=== PATIENT | female | born 1945 | race Caucasian/White ===

== ENCOUNTER 2018-09-19 12:52 | Outpatient (CLI) | payer MEDICARE ==
--- NOTE | 2018-09-19 15:39 | MRI ---
MRI BRAIN WITH AND WITHOUT CONTRAST: HISTORY: Dizziness. Balance issues. COMPARISON: None. TECHNIQUE: An MRI brain is performed with and without intravenous Gadolinium administration. Multisequential, m ultiplanar imaging is performed. FINDINGS: No hemorrhage on the axial gradient echo sequence. The calvarium has a normal T1 marrow signal intensity. The midline brain parenchymal structures are unremarkable. No parenchymal mass, mass effect, or midline shift. Brain volume is age appropriate. Cortical dobbs white matter differentiation is preserved. The ventricles and sulci are patent and symmetric. Minimal T2 and FLAIR white matter hyperintensities due to chronic small vessel ischemic change. Minimal disease of the paranasal sinuses. Adequate mastoid air cell aeration. Central arterial flow voids are maintained. Absent restricted diffusion. No pathologic enhancement of the brain parenchyma. IMPRESSION: 1. Absent restricted diffusion. 2. No acute infarct. 3. No abnormal enhancement in both visualized internal auditory canals/inner ears. Evaluation limit ed, as internal auditory canal protocol had not been performed. POS: [facility]
[2018-09-19] MEDS ORDERED: Gadobenate Dimeglumine 529 MG/1 ML (20ML VIAL) ONE (17:07)
== END 2018-09-19 12:53 | disposition home or self-care (01) ==
LOC: BICMRI 12:52
PROVIDERS: ATTEND Psychiatry & Neurology Neurology
DX: R42 Dizziness and giddiness (principal)
CPT/HCPCS: 70553; 82565; A9577

== ENCOUNTER 2020-05-26 23:52 | Inpatient (IN) | payer MEDICARE, OTHER ==
[2020-05-27] MEDS ORDERED: Acetaminophen 500 MG TAB ONE (00:23)
[2020-05-27 00:55] LABS: Lactic Acid 1.9 mmol/L (0.5-2.2)
[2020-05-27 01:03] LABS: Troponin I 0.041 ng/mL (< 0.028)
[2020-05-27] MEDS ORDERED: Ondansetron PF 4 MG/2 ML Vial IVP PRN (01:30)
[2020-05-27] MEDS ORDERED: HYDROcodone/Acetaminophen 5/325 mg Tablet PO PRN (01:30)
[2020-05-27] MEDS ORDERED: Calcium Carbonate 500 MG ChewTAB PO PRN (01:30)
--- NOTE | 2020-05-27 01:41 | PDOC.HHP ---
Hospitalist HPI - History of Present Illness fever chills History of Present Illness: Case of an 74y/o female with pmhx of htn, DM, hypercholesterolemia, and gerd who comes to hospital due to worsening covid symptoms patient refers she was on her usual state of health until about a week ago when she started with fever chills myalgias and diarrhea. patient was diagnosed with covid on 05/20 and sent home. patient returned today to [facility] due to worsening symptoms and increasing dyspnea. patient was evaluated and found with elevated LA at 2.4 and decreased 02 saturation in the 80s while walking for which she was transferred to this institution for further workup and management. Hospitalist ROS - Review of Systems All other systems reviewed; all pertinent +/- noted in HPI/Subj Hospitalist History - Family History Family History: reports: no pertinent history - Social History Alcohol: reports: Rare Drugs: reports: none - Exam General Appearance: NAD, awake alert, ill appearing Eye: PERRL, anicteric sclera ENT: normocephalic atraumatic, no oropharyngeal lesions Neck: supple, symmetric, no JVD, no thyromegaly Heart: RRR, no murmur, no gallops, no rubs Respiratory: CTAB, no wheezes, no rales Gastrointestinal: soft, non-tender, non-distended Extremities: no cyanosis, no clubbing, no edema Neurological: cranial nerve grossly intact, normal sensation to touch, no weakness Musculoskeletal: normal tone, normal strength, no muscle wasting Psychiatric: normal affect, normal behavior, A&O x 3 Hospitalist Results - Labs Lab results: Lactic Acid 1.9 mmol/L (0.5-2.2) 05/27/20 00:27 Troponin I 0.041 ng/mL (< 0.028) H 05/27/20 00:27 Hospitalist H&P A/P - Problem (1) Pneumonia due to COVID-19 virus Code(s): U07.1 - COVID-19; J12.89 - OTHER VIRAL PNEUMONIA Status: Acute (2) Hypercholesteremia Code(s): E78.00 - PURE HYPERCHOLESTEROLEMIA, UNSPECIFIED Status: Acute (3) DM2 (diabetes mellitus, type 2) Status: Chronic Qualifiers: Diabetes mellitus nursing home insulin use: with terminal press operator use Diabetes mellitus complication status: with unspecified complications (4) HTN (hypertension) Code(s): I10 - ESSENTIAL (PRIMARY) HYPERTENSION Status: Chronic Qualifiers: Hypertension type: essential hypertension Qualified Code(s): I10 - Essential (primary) hypertension - Plan Plan: 74y/o female with the stated pmhx who present with covid 19 pneumonia and hypoxia while on exertion covid 19 - tested positive 05/20 - levaquin prophylactically - f/u inflammation markers - f/u blood cultures - decadron 6mg ivd - ID consulted - supplementation - dvt prophylaxis htn - continue home meds DM - ss + acc - lantus 10u
[2020-05-27] MEDS: Sodium Chloride 0.9% 1,000 ML IV SCH ×2 (02:30→17:37)
[2020-05-27] MEDS ORDERED: Dextrose 50% Abboject 50 ML SYRINGE SLOW IVP PRN (03:04)
[2020-05-27] MEDS ORDERED: Dextrose 5% in Water 1,000 ML IV PRN (03:04)
[2020-05-27 04:35] LABS: ALT (SGPT) 19 U/L (8-55); AST (SGOT) 40 U/L (5-34); Albumin 3.1 g/dL (3.4-4.8); Alkaline Phosphatase 77 U/L (40-110); Anion Gap 13 mmol/L (10-20); BUN (Urea Nitrogen) 9 mg/dL (9.8-20.1); Bilirubin, Total 0.3 mg/dL (0.2-1.2); Calc. Creatinine Clearance 67 mL/min (70-130); Calcium 7.4 mg/dL (7.8-10.44); Carbon Dioxide 18 mmol/L (23-31); Chloride 105 mmol/L (98-107); Estimated GFR-MDRD 75; Globulin 2.5 g/dL (2.4-3.5); Glucose 304 mg/dL (83-110); Potassium 3.9 mmol/L (3.5-5.1); Protein, Total 5.6 g/dL (6.0-8.3); Sodium 132 mmol/L (136-145)
[2020-05-27] MEDS: Ondansetron ODT 4 MG TAB PO PRN ×2 (04:37→09:41)
[2020-05-27] MEDS: Acetaminophen 325 MG TAB PO PRN ×2 (04:37→09:16)
[2020-05-27 04:39] LABS: Troponin I 0.012 ng/mL (< 0.028)
[2020-05-27 05:06] LABS: Band 13 % (5-11); Hemoglobin 11.5 g/dL (12.0-16.0); Lymphocytes 28 % (21-51); MDiff Complete? YES; Mean Corpuscular HGB CONC 34.2 g/dL (32.0-36.0); Mean Corpuscular Hemoglobin 31.6 pg (27.0-31.0); Mean Corpuscular Volume 92.3 fL (78.0-98.0); Mean Platelet Volume 7.6 fL (7.4-10.4); Monocytes 7 % (0-10); Neutrophil 52 % (42-75); Platelet Count 171 thou/uL (130-400); RBC Distribution Width 10.6 % (11.5-14.5); Red Blood Cell (RBC) Count 3.66 mill/uL (4.20-5.40); White Blood Cell (WBC) Count 4.2 thou/uL (4.8-10.8)
[2020-05-27] MEDS: Insulin Regular 300 UNITS/3 ML VIAL SC PRN ×2 (06:33→18:17)
[2020-05-27 06:56] LABS: Troponin I Less than 0.010 ng/mL (< 0.028)
--- NOTE | 2020-05-27 08:42 | CT ---
PRELIMINARY REPORT/[facility]/EMERGENCY AFTER HOURS PROCEDURE: EXAM: CTA Chest with Intravenous Contrast CLINICAL HISTORY: Pt positive covid 10/5 desat on movement to 88 afebrile TECHNIQUE: Axial CTA images of the chest with intravenous contrast. Three-dimensional MIP/volume rendered reform ations were performed. CONTRAST: With; 70ML ISOVUE 370 COMPARISON: None provided. FINDINGS: PULMONARY ARTERIES There is no intraluminal filling defect suspicious for PE. AORTA No thoracic aortic aneurysm or dissection. LUNGS There are patchy groundglass opacity in bilateral lower lobes, findings highly suggestive of Covid 19 pneumonia. PLEURAL SPACES No pleural effusion. No pneumothorax. HEART AND MEDIASTINUM No cardiomegaly. No significant pericardial effusion. LYMPH NODES No lymphadenopathy. BONES No focal osseous abnormality or acute fracture. CHEST WALL AND UPPER ABDOMEN Images through the upper abdomen are unremarkable. The chest wall is unremarkable. MISCELLANEOUS: There is a small hiatal hernia. IMPRESSION: There are patchy groundglass opacity in bilateral lower lobes, findings highly suggestive of Covid 19 pneumonia. Clinical correlation recommended. No CT evidence of a pulmonary embolism. ELECTRONICALLY SIGNED BY: Sylvia Robles MD May 27, 2020 1:24:08 AM CDT This report is intended for review by the ordering physician only, in accordance of law. If you recei ve this report in error, please call [facility] at [phone]. FINAL REPORT CTA CHEST: Axial tomograms were obtained following the angio protocol with multiplanar reconstruction and 3D pos t processing. FINDINGS: No evidence of pulmonary embolus. There are bilateral peripheral ground-glass infiltrates more exten sive in the right lung. Findings are suggestive of COVID pneumonia as noted on the preliminary repor t. There is a small- to moderate-sized fixed diaphragmatic hernia. I am in agreement with the preliminary report. POS: OFF
[2020-05-27] MEDS ORDERED: Enoxaparin Sodium 40 MG/0.4 ML SYRINGE SC SCH (09:00)
[2020-05-27] MEDS: Guaifenesin DM 100-10/5 ML UDCUP PO PRN ×2 (09:16→23:45)
[2020-05-27] MEDS: Dexamethasone 6 MG in Sodium Chloride 0.9% 50 ML IVPB SCH (09:16)
--- NOTE | 2020-05-27 12:13 | PDOC.EVN ---
Event Note - Event Note Event Note: Patient says she feels generally terrible. Says she aches all over consistent with a viral infection. She reports that her sister and [id number] that lives with her now have it as well. She does feel slightly better than whenever she arrived. She has some mild scattered rales in the lungs. She does not appear to have tachypnea wearing oxygen. She is requiring oxygen but at very low levels at this point to maintain good saturations. Continue with the Decadron. ID consult pending. I believe she is fairly borderline as to whether she qualifies for Remdesivir.
[2020-05-27] MEDS ORDERED: ALPRAZolam 0.25 MG TAB PO PRN (12:46)
[2020-05-27] MEDS ORDERED: Ondansetron ODT 4 MG TAB PO PRN (12:46)
[2020-05-27] MEDS: HYDROcodone/Acetaminophen 5/325 mg Tablet PO PRN ×2 (13:37→21:38)
[2020-05-27] MEDS ORDERED: Iopamidol-370 76% 500 ML 1 ML ONE (13:40)
[2020-05-27] MEDS ORDERED: REMDESIVIR (EUA) 200 MG in Sodium Chloride 0.9% 250 ML 210 ML IV SCH (18:00)
--- NOTE | 2020-05-27 19:48 | CON ---
DATE OF CONSULTATION: 05/27/2020 REASON FOR CONSULTATION: COVID infection. HISTORY OF PRESENT ILLNESS: A 74-year-old, who has a history of type 2 diabetes, hypertension, and has been ill for the past 7 days. She was tested positive elsewhere, but sent home, but then she became more symptomatic and is admitted now. Coughing intermittently. No headaches. Mild dyspnea. No chest pain. No abdominal pain or diarrhea. No genitourinary symptoms. No joint symptoms. No skin disorder or neurological symptoms. PAST MEDICAL HISTORY: Type 2 diabetes, hypertension, bowel obstruction, osteopenia, hiatal hernia, GERD, hyperlipidemia. Empyema in 2017, she had a decortication by Dr. Siddiqi, this was on the left side. SOCIAL HISTORY: Never smoker. 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 FAMILY HISTORY: Some members of family have had COVID or SARS-CoV-2 infection. ALLERGIES: GABAPENTIN, STATINS. CURRENT MEDICATIONS: 1. Decadron. 2. Enoxaparin. 3. Prozac. 4. Guaifenesin. 5. Hydrocodone. 6. Insulin. 7. Lisinopril. 8. Ondansetron. 9. Pantoprazole. PHYSICAL EXAMINATION: VITAL SIGNS: T-max 99, BP 120/60, heart rate 73, saturating 97 on 1 L. GENERAL: Awake, alert, appears tired, but in no acute distress. SKIN: Normal. Peripheral IV access. Voiding in the diaper. No lymphadenopathy. HEENT: Ocular movements conjugate. Oral cavity normal. NECK: Supple. LUNGS: Scattered inspiratory crackles. No wheezing. HEART: S1 and S2, regular rate without murmurs. Normal apex impulse. ABDOMEN: Soft, not distended or tender. No ascites. No bladder distention. EXTREMITIES: Moves all extremities equally. NEUROLOGIC: Cognitive function appears to be intact. LABORATORY DATA: White cell count 4.2, hemoglobin 11, platelets 171, and 13% bands. Creatinine 0.76. AST 40. We do not have a ferritin submitted yet. She had an abdomen and pelvis CT from March of this year with distal small-bowel obstruction, probably from adhesions. She had a CT angio this morning, which showed patchy ground-glass opacity in bilateral lower lobes. ASSESSMENT: COVID infection with moderate pneumonia within 7 days, we will go ahead and start remdesivir. Continue Decadron, upgrade enoxaparin. Monitor daily labs. Job ID: [id number]
[2020-05-27] MEDS: Insulin Glargine 10 UNITS in Pre-Filled Syringe 1 EACH SC SCH (21:37)
[2020-05-27] MEDS: Enoxaparin Sodium 40 MG/0.4 ML SYRINGE SC SCH (21:37)
[2020-05-27] MEDS: HumaLOG 300 UNITS/3 ML VIAL SC PRN (22:03)
[2020-05-28 05:47] LABS: ALT (SGPT) 23 U/L (8-55); AST (SGOT) 46 U/L (5-34); Albumin 3.2 g/dL (3.4-4.8); Alkaline Phosphatase 92 U/L (40-110); Anion Gap 12 mmol/L (10-20); BUN (Urea Nitrogen) 10 mg/dL (9.8-20.1); Bilirubin, Direct 0.1 mg/dL (0.1-0.3); Bilirubin, Total 0.2 mg/dL (0.2-1.2); CRP (Inflammatory) 8.51 mg/dL (= or < 0.5); Calc. Creatinine Clearance 64 mL/min (70-130); Calcium 7.8 mg/dL (7.8-10.44); Carbon Dioxide 23 mmol/L (23-31); Chloride 107 mmol/L (98-107); Estimated GFR-MDRD 71; Glucose 345 mg/dL (83-110); Protein, Total 5.9 g/dL (6.0-8.3); Sodium 138 mmol/L (136-145)
[2020-05-28] MEDS: Insulin Regular 300 UNITS/3 ML VIAL SC PRN (05:52)
[2020-05-28] MEDS: Sodium Chloride 0.9% 1,000 ML IV SCH ×2 (05:52→20:48)
[2020-05-28] MEDS: Guaifenesin DM 100-10/5 ML UDCUP PO PRN ×3 (05:56→20:48)
[2020-05-28] MEDS: HYDROcodone/Acetaminophen 5/325 mg Tablet PO PRN ×3 (05:57→22:51)
[2020-05-28] MEDS: FLUoxetine HCl 20 MG CAP PO SCH (08:09)
[2020-05-28] MEDS: Lisinopril 5 MG TAB PO SCH (08:10)
[2020-05-28] MEDS: Saccharomyces boulardii 250 MG CAP PO SCH (08:11)
[2020-05-28] MEDS: Enoxaparin Sodium 40 MG/0.4 ML SYRINGE SC SCH ×2 (08:12→20:48)
[2020-05-28] MEDS: Insulin Glargine 20 UNITS in Pre-Filled Syringe 1 EACH SC SCH (10:11)
[2020-05-28] MEDS: Dexamethasone 6 MG in Sodium Chloride 0.9% 50 ML IVPB SCH (10:12)
[2020-05-28] MEDS: HumaLOG 300 UNITS/3 ML VIAL SC PRN ×3 (12:55→20:55)
--- NOTE | 2020-05-28 15:30 | PDOC.HOSPP ---
- Subjective Encounter Date: 05/28/20 Subjective: Feeling a little better today. Says she is feeling just a bit lazy. - Objective Vital Signs & Weight: Vital Signs (12 hours) Temp Pulse Resp BP Pulse Ox 05/28/20 11:44 98.9 F 66 20 129/62 95 05/28/20 08:43 98.7 F 65 20 150/69 H 05/28/20 04:15 98.6 F 72 16 155/67 H 95 Weight Admit Weight 142 lb Weight 142 lb I&O: 05/27/20 05/28/20 05/29/20 06:59 06:59 06:59 Intake Total 516 1983 Output Total 550 1200 Balance -34 783 Result Diagrams: 05/27/20 04:06 05/28/20 05:00 Additional Labs: Accuchecks 05/28/20 05/27/20 05/27/20 11:19 21:47 17:44 POC Glucose 306 H 399 H 369 H Hospitalist ROS - Medication Medications: Active Medications Generic Name Dose Route Start Last Admin Trade Name Freq PRN Reason Stop Dose Admin Acetaminophen 650 mg 05/27/20 01:30 05/27/20 09:16 Acetaminophen 325 Mg Tab PO 650 mg Q4H PRN Administration Headache/Fever/Mild Pain (1-3) Hydrocodone Bitart/Acetaminophen 1 tab 05/27/20 12:46 05/28/20 05:57 Hydrocodone/Acetaminophen 5/325 Mg Tablet PO 1 tab Q6H PRN Administration Pain 4-6 Enoxaparin Sodium 40 mg 05/27/20 21:00 05/28/20 08:12 Enoxaparin Sodium 40 Mg/0.4 Ml Syringe SC 40 mg BID SANJAY Administration Fluoxetine HCl 40 mg 05/28/20 09:00 05/28/20 08:09 Fluoxetine Hcl 20 Mg Cap PO 40 mg DAILY SANJAY Administration Guaifenesin/Dextromethorphan 15 ml 05/27/20 01:30 05/28/20 05:56 Guaifenesin Dm 100-10/5 Ml Udcup PO 15 ml Q4H PRN Administration Cough Sodium Chloride 1,000 mls @ 75 mls/hr 05/27/20 01:30 05/28/20 05:52 Normal Saline 0.9% IV 1,000 mls .[id number] SANJAY Administration Dexamethasone 6 mg/ Sodium 50.6 mls @ 100 mls/hr 05/27/20 09:00 05/28/20 10:12 Chloride IVPB 50.6 mls DAILY SANJAY Administration Insulin Glargine 10 units/ 0.1 mls @ 0 mls/hr 05/27/20 21:00 05/27/20 21:37 Miscellaneous Medication SC 0.1 mls HS SANJAY Administration Insulin Glargine 20 units/ 0.2 mls @ 0 mls/hr 05/28/20 09:00 05/28/20 10:11 Miscellaneous Medication SC 0.2 mls QAM SANJAY Administration Insulin Human Lispro 0 units 05/27/20 21:51 05/27/20 22:03 Humalog 300 Units/3 Ml Vial SC 5 unit .BEDTIME SLIDING SC PRN Administration Bedtime Correctional Scale Insulin Human Lispro 0 units 05/28/20 07:57 05/28/20 12:55 Humalog 300 Units/3 Ml Vial SC 8 units .MODERATE SLIDING SC PRN Administration Moderate Correctional Scale Lisinopril 5 mg 05/28/20 09:00 05/28/20 08:10 Lisinopril 5 Mg Tab PO 5 mg DAILY SANJAY Administration Pantoprazole Sodium 40 mg 05/28/20 09:00 05/28/20 08:10 Pantoprazole 40 Mg Tab PO 40 mg DAILY SANJAY Administration Saccharomyces Boulardii 250 mg 05/28/20 09:00 05/28/20 08:11 Saccharomyces Boulardii 250 Mg Cap PO 250 mg DAILY SANJAY Administration Sodium Chloride 10 ml 05/27/20 09:00 05/28/20 08:11 Flush - Normal Saline 10 Ml Syringe IVF 10 ml Q12HR SANJAY Administration - Exam General Appearance: NAD, awake alert Heart: RRR, no murmur, no gallops, no rubs, normal peripheral pulses Respiratory: no wheezes, no ronchi, normal chest expansion, rales (Mild scattered) Gastrointestinal: soft, non-tender, non-distended, normal bowel sounds, no palpable masses, no hepatomegaly, no splenomegaly, no bruit Extremities: no cyanosis, no clubbing, no edema Skin: normal turgor Musculoskeletal: normal tone, normal strength, no muscle wasting Psychiatric: normal affect, normal behavior, A&O x 3 Hosp A/P (1) Acute respiratory failure with hypoxia Code(s): J96.01 - ACUTE RESPIRATORY FAILURE WITH HYPOXIA Status: Acute (2) Pneumonia due to COVID-19 virus Code(s): U07.1 - COVID-19; J12.89 - OTHER VIRAL PNEUMONIA Status: Acute (3) DM2 (diabetes mellitus, type 2) Status: Chronic Qualifiers: Diabetes mellitus detention insulin use: with detention use Diabetes mellitus complication status: with unspecified complications (4) HTN (hypertension) Code(s): I10 - ESSENTIAL (PRIMARY) HYPERTENSION Status: Chronic Qualifiers: Hypertension type: essential hypertension Qualified Code(s): I10 - Essential (primary) hypertension - Plan Acute hypoxic respiratory failure: Secondary to COVID-19 pneumonia. Continue supplemental oxygen as needed, bronchodilators as needed. May need to consider bronchodilator at some point. Currently seems to be doing well without them. COVID-19 pneumonia: Continue dexamethasone, Remdesivir (day 2 of 5). Appreciate ID consult. Inflammatory markers are elevated but not overwhelmingly so. Diabetes mellitus: Patient's blood sugars continue to run very high related to the Decadron. I have increased her Lantus and increased her sliding scale insulin. Hypertension: Continue p.o. Zestril at her usual dose.
[2020-05-28] MEDS: REMDESIVIR (EUA) 100 MG in Sodium Chloride 0.9% 250 ML 230 ML IV SCH (17:35)
[2020-05-28] MEDS: Insulin Glargine 10 UNITS in Pre-Filled Syringe 1 EACH SC SCH (20:49)
[2020-05-28] MEDS: Acetaminophen 325 MG TAB PO PRN (21:02)
[2020-05-29 06:32] LABS: Anion Gap 11 mmol/L (10-20); BUN (Urea Nitrogen) 15 mg/dL (9.8-20.1); Calc. Creatinine Clearance 67 mL/min (70-130); Calcium 7.8 mg/dL (7.8-10.44); Carbon Dioxide 22 mmol/L (23-31); Chloride 107 mmol/L (98-107); Estimated GFR-MDRD 75; Glucose 308 mg/dL (83-110); Potassium 4.2 mmol/L (3.5-5.1); Sodium 136 mmol/L (136-145)
[2020-05-29 06:34] LABS: ALT (SGPT) 24 U/L (8-55); AST (SGOT) 39 U/L (5-34); Alkaline Phosphatase 90 U/L (40-110); Bilirubin, Direct 0.1 mg/dL (0.1-0.3); Bilirubin, Total 0.2 mg/dL (0.2-1.2); Protein, Total 5.6 g/dL (6.0-8.3)
[2020-05-29] MEDS: Guaifenesin DM 100-10/5 ML UDCUP PO PRN ×3 (06:43→21:58)
[2020-05-29] MEDS: HYDROcodone/Acetaminophen 5/325 mg Tablet PO PRN ×3 (06:43→21:58)
[2020-05-29] MEDS: HumaLOG 300 UNITS/3 ML VIAL SC PRN ×3 (06:51→18:32)
[2020-05-29] MEDS: Enoxaparin Sodium 40 MG/0.4 ML SYRINGE SC SCH ×2 (08:38→21:58)
[2020-05-29] MEDS: FLUoxetine HCl 20 MG CAP PO SCH (08:39)
[2020-05-29] MEDS: Saccharomyces boulardii 250 MG CAP PO SCH (08:39)
[2020-05-29] MEDS: Lisinopril 5 MG TAB PO SCH (08:39)
[2020-05-29] MEDS: Insulin Glargine 20 UNITS in Pre-Filled Syringe 1 EACH SC SCH (11:45)
[2020-05-29] MEDS: Dexamethasone 6 MG in Sodium Chloride 0.9% 50 ML IVPB SCH (11:46)
[2020-05-29] MEDS: Sodium Chloride 0.9% 1,000 ML IV SCH (11:46)
--- NOTE | 2020-05-29 11:47 | PDOC.HOSPP ---
- Subjective Encounter Date: 05/29/20 Encounter Time: 11:45 Subjective: f/u for COVID-19 PNA on current Remdesivir/Dexamethasone/Lovenox/O2 @ 1L/min. Feels weak and tired with residual coughing. - Objective Vital Signs & Weight: Vital Signs (12 hours) Temp Pulse Resp BP BP Pulse Ox 05/29/20 08:40 98.1 F 62 16 169/72 H 94 L 05/29/20 08:05 95 05/29/20 04:20 98.4 F 61 16 159/75 H 94 L 05/29/20 01:52 98.6 F 58 L 21 H 156/74 H 95 Weight Admit Weight 142 lb Weight 142 lb I&O: 05/28/20 05/29/20 05/30/20 06:59 06:59 06:59 Intake Total 1983 2860 Output Total 1200 800 Balance 783 2060 Result Diagrams: 05/27/20 04:06 05/29/20 05:07 Additional Labs: Accuchecks 05/29/20 05/28/20 05/28/20 06:54 21:03 16:18 POC Glucose 280 H 235 H 259 H Hospitalist ROS - Medication Medications: Active Medications Generic Name Dose Route Start Last Admin Trade Name Freq PRN Reason Stop Dose Admin Acetaminophen 650 mg 05/27/20 01:30 05/28/20 21:02 Acetaminophen 325 Mg Tab PO 650 mg Q4H PRN Administration Headache/Fever/Mild Pain (1-3) Hydrocodone Bitart/Acetaminophen 1 tab 05/27/20 12:46 05/29/20 06:43 Hydrocodone/Acetaminophen 5/325 Mg Tablet PO 1 tab Q6H PRN Administration Pain 4-6 Enoxaparin Sodium 40 mg 05/27/20 21:00 05/29/20 08:38 Enoxaparin Sodium 40 Mg/0.4 Ml Syringe SC 40 mg BID SANJAY Administration Fluoxetine HCl 40 mg 05/28/20 09:00 05/29/20 08:39 Fluoxetine Hcl 20 Mg Cap PO 40 mg DAILY SANJAY Administration Guaifenesin/Dextromethorphan 15 ml 05/27/20 01:30 05/29/20 06:43 Guaifenesin Dm 100-10/5 Ml Udcup PO 15 ml Q4H PRN Administration Cough Sodium Chloride 1,000 mls @ 75 mls/hr 10/12/20 01:30 05/28/20 20:48 Normal Saline 0.9% IV 1,000 mls .[id number] SANJAY Administration Dexamethasone 6 mg/ Sodium 50.6 mls @ 100 mls/hr 05/27/20 09:00 05/28/20 10:12 Chloride IVPB 50.6 mls DAILY SANJAY Administration Insulin Glargine 10 units/ 0.1 mls @ 0 mls/hr 05/27/20 21:00 05/28/20 20:49 Miscellaneous Medication SC 0.1 mls HS SANJAY Administration Remdesivir 100 mg/ Sodium 250 mls @ 250 mls/hr 05/28/20 18:00 05/28/20 17:35 Chloride IV 05/31/20 18:59 250 mls 1800 SANJAY Administration Insulin Glargine 20 units/ 0.2 mls @ 0 mls/hr 05/28/20 09:00 05/28/20 10:11 Miscellaneous Medication SC 0.2 mls QAM SANJAY Administration Insulin Human Lispro 0 units 05/27/20 21:51 05/28/20 20:55 Humalog 300 Units/3 Ml Vial SC 2 unit .BEDTIME SLIDING SC PRN Administration Bedtime Correctional Scale Insulin Human Lispro 0 units 05/28/20 07:57 05/29/20 06:51 Humalog 300 Units/3 Ml Vial SC 6 units .MODERATE SLIDING SC PRN Administration Moderate Correctional Scale Lisinopril 5 mg 05/28/20 09:00 05/29/20 08:39 Lisinopril 5 Mg Tab PO 5 mg DAILY SANJAY Administration Pantoprazole Sodium 40 mg 05/28/20 09:00 05/29/20 08:39 Pantoprazole 40 Mg Tab PO 40 mg DAILY SANJAY Administration Saccharomyces Boulardii 250 mg 05/28/20 09:00 05/29/20 08:39 Saccharomyces Boulardii 250 Mg Cap PO 250 mg DAILY SANJAY Administration Sodium Chloride 10 ml 05/27/20 09:00 05/29/20 08:38 Flush - Normal Saline 10 Ml Syringe IVF 10 ml Q12HR SANJAY Administration - Exam General Appearance: NAD, awake alert Eye: PERRL, anicteric sclera ENT: normocephalic atraumatic, no oropharyngeal lesions Neck: supple, symmetric, no JVD, no thyromegaly, no lymphadenopathy Heart: RRR, no murmur, no gallops, no rubs, normal peripheral pulses Heart - other findings: S1, S2 Respiratory: wheezes Respiratory - other findings: scattered coarse sounds bilat Gastrointestinal: soft, non-tender, non-distended, normal bowel sounds, no palpable masses Extremities: no cyanosis, no clubbing, no edema Skin: normal turgor, no lesions Neurological: cranial nerve grossly intact, no new deficit Musculoskeletal: normal tone, generalized weakness Psychiatric: normal affect, A&O x 3 Hosp A/P (1) Pneumonia due to COVID-19 virus Code(s): U07.1 - COVID-19; J12.89 - OTHER VIRAL PNEUMONIA Status: Acute Plan: Continue pulmonary support, Remdesivir/Lovenox/Dexamethasone, add Albuterol MDI (2) Acute respiratory failure with hypoxia Code(s): J96.01 - ACUTE RESPIRATORY FAILURE WITH HYPOXIA Status: Acute Plan: Continue O2 supplementation, see #1 above (3) DM2 (diabetes mellitus, type 2) Status: Chronic Qualifiers: Diabetes mellitus retirement insulin use: with retirement use Diabetes mellitus complication status: with unspecified complications Plan: Labile due to Dexamethasone, continue ISS, Lantus (4) HTN (hypertension) Code(s): I10 - ESSENTIAL (PRIMARY) HYPERTENSION Status: Chronic Qualifiers: Hypertension type: essential hypertension Qualified Code(s): I10 - Essential (primary) hypertension Plan: labile due to COVID-19 PNA and Dexamethasone, serial monitoring, PRN BP control - Plan continue antibiotics, social services coordinator, speech therapy, respiratory therapy, out of bed/ambulate, DVT proph w/SCDs Stable currently Continue Remdesivir Continue Lovenox/Dexamethsone Add Albuterol MDI OOB/ambulate AM lab: BMP, CRP, D-dimer, Ferritin
[2020-05-29] MEDS ORDERED: Albuterol Sulfate 2.5 mg/3 ml Neb NEB PRN (12:11)
[2020-05-29] MEDS ORDERED: Albuterol 200 PUFF (6.7GM INHALER) INH PRN (14:15)
[2020-05-29] MEDS: REMDESIVIR (EUA) 100 MG in Sodium Chloride 0.9% 250 ML 230 ML IV SCH (18:31)
[2020-05-29] MEDS: Insulin Glargine 10 UNITS in Pre-Filled Syringe 1 EACH SC SCH (21:59)
[2020-05-30] MEDS: HYDROcodone/Acetaminophen 5/325 mg Tablet PO PRN ×4 (03:55→23:49)
[2020-05-30] MEDS: Guaifenesin DM 100-10/5 ML UDCUP PO PRN ×4 (03:55→23:49)
[2020-05-30] MEDS: Sodium Chloride 0.9% 1,000 ML IV SCH ×2 (05:34→18:24)
[2020-05-30] MEDS: HumaLOG 300 UNITS/3 ML VIAL SC PRN (05:48)
[2020-05-30 06:19] LABS: ALT (SGPT) 26 U/L (8-55); AST (SGOT) 34 U/L (5-34); Alkaline Phosphatase 99 U/L (40-110); Anion Gap 12 mmol/L (10-20); BUN (Urea Nitrogen) 11 mg/dL (9.8-20.1); Bilirubin, Direct 0.1 mg/dL (0.1-0.3); Bilirubin, Total 0.3 mg/dL (0.2-1.2); Calc. Creatinine Clearance 66 mL/min (70-130); Calcium 7.8 mg/dL (7.8-10.44); Carbon Dioxide 23 mmol/L (23-31); Chloride 106 mmol/L (98-107); Estimated GFR-MDRD 73; Glucose 248 mg/dL (83-110); Potassium 4.3 mmol/L (3.5-5.1); Protein, Total 5.6 g/dL (6.0-8.3); Sodium 137 mmol/L (136-145)
[2020-05-30] MEDS: Enoxaparin Sodium 40 MG/0.4 ML SYRINGE SC SCH ×2 (08:45→21:02)
[2020-05-30] MEDS: FLUoxetine HCl 20 MG CAP PO SCH (08:45)
[2020-05-30] MEDS: Lisinopril 5 MG TAB PO SCH (08:45)
[2020-05-30] MEDS: Insulin Glargine 20 UNITS in Pre-Filled Syringe 1 EACH SC SCH (08:45)
[2020-05-30] MEDS: Saccharomyces boulardii 250 MG CAP PO SCH (08:46)
[2020-05-30] MEDS: Dexamethasone 6 MG in Sodium Chloride 0.9% 50 ML IVPB SCH (08:46)
[2020-05-30] MEDS: REMDESIVIR (EUA) 100 MG in Sodium Chloride 0.9% 250 ML 230 ML IV SCH (18:24)
--- NOTE | 2020-05-30 19:00 | PDOC.HOSPP ---
- Subjective Encounter Date: 05/30/20 Encounter Time: 18:45 Subjective: f/u for COVID-19 PNA on Remdesivir/Dexamethasone/Lovenox. Remains on O2 supplementation. Feels weak and fatigued, taste is marginal. - Objective Vital Signs & Weight: Vital Signs (12 hours) Temp Pulse Resp BP BP Pulse Ox 05/30/20 16:00 62 20 133/67 95 05/30/20 12:16 98.5 F 60 18 159/70 H 95 05/30/20 08:00 98.9 F 64 18 144/67 H 94 L Weight Admit Weight 142 lb Weight 142 lb I&O: 05/29/20 05/30/20 05/31/20 06:59 06:59 06:59 Intake Total 2860 980 600 Output Total 800 1350 1100 Balance 4937 -145 -656 Result Diagrams: 05/27/20 04:06 05/30/20 05:11 Additional Labs: Accuchecks 05/30/20 05/30/20 05/30/20 16:49 12:14 05:39 POC Glucose 194 H 151 H 226 H Microbiology 04/11/20 00:35 Urine voided Urine Culture - Preliminary Laboratory Tests 05/30/20 05/30/20 05/30/20 05:11 05:11 05:11 D-Dimer 0.38 Ferritin 455.10 H C-Reactive Protein 2.22 H EKG Reviewed by me: Yes (Tele - SR) Hospitalist ROS - Medication Medications: Active Medications Generic Name Dose Route Start Last Admin Trade Name Freq PRN Reason Stop Dose Admin Acetaminophen 650 mg 05/27/20 01:30 05/28/20 21:02 Acetaminophen 325 Mg Tab PO 650 mg Q4H PRN Administration Headache/Fever/Mild Pain (1-3) Hydrocodone Bitart/Acetaminophen 1 tab 05/27/20 12:46 05/30/20 18:29 Hydrocodone/Acetaminophen 5/325 Mg Tablet PO 1 tab Q6H PRN Administration Pain 4-6 Enoxaparin Sodium 40 mg 05/27/20 21:00 05/30/20 08:45 Enoxaparin Sodium 40 Mg/0.4 Ml Syringe SC 40 mg BID SANJAY Administration Fluoxetine HCl 40 mg 05/28/20 09:00 05/30/20 08:45 Fluoxetine Hcl 20 Mg Cap PO 40 mg DAILY SANJAY Administration Guaifenesin/Dextromethorphan 15 ml 05/27/20 01:30 05/30/20 18:29 Guaifenesin Dm 100-10/5 Ml Udcup PO 15 ml Q4H PRN Administration Cough Sodium Chloride 1,000 mls @ 75 mls/hr 05/27/20 01:30 05/30/20 18:24 Normal Saline 0.9% IV Not Given .[id number] SANJAY Dexamethasone 6 mg/ Sodium 50.6 mls @ 100 mls/hr 05/27/20 09:00 05/30/20 08:46 Chloride IVPB 50.6 mls DAILY SANJAY Administration Insulin Glargine 10 units/ 0.1 mls @ 0 mls/hr 05/27/20 21:00 05/29/20 21:59 Miscellaneous Medication SC 0.1 mls HS SANJAY Administration Remdesivir 100 mg/ Sodium 250 mls @ 250 mls/hr 05/28/20 18:00 05/30/20 18:24 Chloride IV 05/31/20 18:59 250 mls 1800 SANJAY Administration Insulin Glargine 20 units/ 0.2 mls @ 0 mls/hr 05/28/20 09:00 05/30/20 08:45 Miscellaneous Medication SC 0.2 mls QAM SANJAY Administration Insulin Human Lispro 0 units 05/27/20 21:51 05/28/20 20:55 Humalog 300 Units/3 Ml Vial SC 2 unit .BEDTIME SLIDING SC PRN Administration Bedtime Correctional Scale Insulin Human Lispro 0 units 05/28/20 07:57 05/30/20 05:48 Humalog 300 Units/3 Ml Vial SC 4 units .MODERATE SLIDING SC PRN Administration Moderate Correctional Scale Lisinopril 5 mg 05/28/20 09:00 05/30/20 08:45 Lisinopril 5 Mg Tab PO 5 mg DAILY SANJAY Administration Pantoprazole Sodium 40 mg 05/28/20 09:00 05/30/20 08:45 Pantoprazole 40 Mg Tab PO 40 mg DAILY SANJAY Administration Saccharomyces Boulardii 250 mg 05/28/20 09:00 05/30/20 08:46 Saccharomyces Boulardii 250 Mg Cap PO 250 mg DAILY SANJAY Administration Sodium Chloride 10 ml 05/27/20 09:00 10/15/20 08:46 Flush - Normal Saline 10 Ml Syringe IVF 10 ml Q12HR SANJAY Administration - Exam General Appearance: NAD, awake alert Eye: PERRL, anicteric sclera ENT: normocephalic atraumatic, no oropharyngeal lesions Neck: supple, symmetric, no JVD, no thyromegaly, no lymphadenopathy Heart: RRR, no gallops, no rubs, normal peripheral pulses Heart - other findings: S1, S2 Respiratory: CTAB, no wheezes, no rales, no ronchi, tachypneic Gastrointestinal: soft, non-tender, non-distended, normal bowel sounds, no palpable masses Extremities: no cyanosis, no clubbing, no edema Skin: normal turgor, no lesions Neurological: cranial nerve grossly intact, no new deficit Musculoskeletal: normal tone, normal strength, no muscle wasting Psychiatric: A&O x 3, flat affect Hosp A/P (1) Pneumonia due to COVID-19 virus Code(s): U07.1 - COVID-19; J12.89 - OTHER VIRAL PNEUMONIA Status: Acute Plan: Continue Remdesivir/Dexamethasone/Lovenox, O2 supplementation (2) Acute respiratory failure with hypoxia Code(s): J96.01 - ACUTE RESPIRATORY FAILURE WITH HYPOXIA Status: Acute Plan: Continue O2 support, wean as clinically indicated (3) DM2 (diabetes mellitus, type 2) Status: Chronic Qualifiers: Diabetes mellitus intermodal customer service insulin use: with intermodal customer service use Diabetes mellitus complication status: with unspecified complications Plan: Continue ISS, Lantus, ADA (4) HTN (hypertension) Code(s): I10 - ESSENTIAL (PRIMARY) HYPERTENSION Status: Chronic Qualifiers: Hypertension type: essential hypertension Qualified Code(s): I10 - Essentia l (primary) hypertension - Plan social work job titles, respiratory therapy, out of bed/ambulate, DVT proph w/SCDs Stable currently Continue Remdesivir Continue Lovenox/Dexamethsone Add Albuterol MDI Saline lock IVF OOB/ambulate AM lab: BMP, CRP, D-dimer, Ferritin
[2020-05-30] MEDS: Insulin Glargine 10 UNITS in Pre-Filled Syringe 1 EACH SC SCH (21:02)
[2020-05-31 05:22] LABS: ALT (SGPT) 27 U/L (8-55); AST (SGOT) 26 U/L (5-34); Alkaline Phosphatase 99 U/L (40-110); Anion Gap 13 mmol/L (10-20); BUN (Urea Nitrogen) 9 mg/dL (9.8-20.1); Bilirubin, Direct 0.2 mg/dL (0.1-0.3); Bilirubin, Total 0.3 mg/dL (0.2-1.2); Calc. Creatinine Clearance 67 mL/min (70-130); Calcium 8.1 mg/dL (7.8-10.44); Carbon Dioxide 24 mmol/L (23-31); Chloride 102 mmol/L (98-107); Estimated GFR-MDRD 75; Glucose 178 mg/dL (83-110); Potassium 3.2 mmol/L (3.5-5.1); Protein, Total 5.5 g/dL (6.0-8.3); Sodium 136 mmol/L (136-145)
[2020-05-31] MEDS: Guaifenesin DM 100-10/5 ML UDCUP PO PRN ×3 (05:48→21:17)
[2020-05-31] MEDS: HYDROcodone/Acetaminophen 5/325 mg Tablet PO PRN ×3 (05:48→21:17)
[2020-05-31] MEDS: HumaLOG 300 UNITS/3 ML VIAL SC PRN ×2 (05:49→21:15)
[2020-05-31] MEDS ORDERED: Potassium Chloride 20 MEQ TAB PO SCH (07:30)
[2020-05-31] MEDS: Lisinopril 5 MG TAB PO SCH (08:52)
[2020-05-31] MEDS: FLUoxetine HCl 20 MG CAP PO SCH (08:52)
[2020-05-31] MEDS: Saccharomyces boulardii 250 MG CAP PO SCH (08:52)
[2020-05-31] MEDS: Enoxaparin Sodium 40 MG/0.4 ML SYRINGE SC SCH ×2 (08:52→21:16)
[2020-05-31] MEDS: Insulin Glargine 20 UNITS in Pre-Filled Syringe 1 EACH SC SCH (08:53)
[2020-05-31] MEDS: Dexamethasone 6 MG in Sodium Chloride 0.9% 50 ML IVPB SCH (08:53)
[2020-05-31] MEDS ORDERED: traMADol HCl 50 MG TAB PO PRN (12:04)
[2020-05-31] MEDS ORDERED: Acetaminophen/Codeine 30-300mg Tablet PO PRN (12:04)
--- NOTE | 2020-05-31 16:43 | PDOC.HOSPP ---
- Subjective Encounter Date: 05/31/20 Encounter Time: 07:40 Subjective: Patient seen for follow-up regarding COVID-19 pneumonia. She reports cough and pleuritic chest pain. - Objective Vital Signs & Weight: Vital Signs (12 hours) Temp Pulse Resp BP Pulse Ox 05/31/20 13:22 98.7 F 05/31/20 11:00 66 18 155/70 H 94 L 05/31/20 08:41 98.5 F 64 20 197/91 H 95 05/31/20 07:55 95 Weight Admit Weight 142 lb Weight 142 lb I&O: 05/30/20 05/31/20 06/01/20 06:59 06:59 06:59 Intake Total 980 1040 Output Total 1350 1750 Balance -370 -710 Result Diagrams: 05/27/20 04:06 05/31/20 04:28 Additional Labs: Accuchecks 05/31/20 05/30/20 05/30/20 11:04 21:09 16:49 POC Glucose 94 248 H 194 H 05/29/20 20:44 POC Glucose 238 H EKG Reviewed by me: Yes (Tele: NSR) Hospitalist ROS - Review of Systems Respiratory: reports: cough, dry. denies: shortness of breath, hemoptysis, SOB with excertion, pleuritic pain, sputum, wheezing Cardiovascular: reports: chest pain. denies: palpitations, orthopnea, paroxysmal noc. dyspnea, edema, light headedness - Medication Medications: Active Medications Generic Name Dose Route Start Last Admin Trade Name Freq PRN Reason Stop Dose Admin Acetaminophen 650 mg 05/27/20 01:30 05/28/20 21:02 Acetaminophen 325 Mg Tab PO 650 mg Q4H PRN Administration Headache/Fever/Mild Pain (1-3) Hydrocodone Bitart/Acetaminophen 1 tab 05/27/20 12:46 05/31/20 12:06 Hydrocodone/Acetaminophen 5/325 Mg Tablet PO 1 tab Q6H PRN Administration Pain 4-6 Enoxaparin Sodium 40 mg 05/27/20 21:00 05/31/20 08:52 Enoxaparin Sodium 40 Mg/0.4 Ml Syringe SC 40 mg BID SANJAY Administration Fluoxetine HCl 40 mg 05/28/20 09:00 05/31/20 08:52 Fluoxetine Hcl 20 Mg Cap PO 40 mg DAILY SANJAY Administration Guaifenesin/Dextromethorphan 15 ml 05/27/20 01:30 05/31/20 12:06 Guaifenesin Dm 100-10/5 Ml Udcup PO 15 ml Q4H PRN Administration Cough Dexamethasone 6 mg/ Sodium 50.6 mls @ 100 mls/hr 05/27/20 09:00 05/31/20 08:53 Chloride IVPB 50.6 mls DAILY SANJAY Administration Insulin Glargine 10 units/ 0.1 mls @ 0 mls/hr 05/27/20 21:00 05/30/20 21:02 Miscellaneous Medication SC 0.1 mls HS SANJAY Administration Remdesivir 100 mg/ Sodium 250 mls @ 250 mls/hr 05/28/20 18:00 05/30/20 18:24 Chloride IV 05/31/20 18:59 250 mls 1800 SANJAY Administration Insulin Glargine 20 units/ 0.2 mls @ 0 mls/hr 05/28/20 09:00 05/31/20 08:53 Miscellaneous Medication SC 0.2 mls QAM SANJAY Administration Insulin Human Lispro 0 units 05/27/20 21:51 05/28/20 20:55 Humalog 300 Units/3 Ml Vial SC 2 unit .BEDTIME SLIDING SC PRN Administration Bedtime Correctional Scale Insulin Human Lispro 0 units 05/28/20 07:57 05/31/20 05:49 Humalog 300 Units/3 Ml Vial SC 2 units .MODERATE SLIDING SC PRN Administration Moderate Correctional Scale Lisinopril 5 mg 05/28/20 09:00 05/31/20 08:52 Lisinopril 5 Mg Tab PO 5 mg DAILY SANJAY Administration Pantoprazole Sodium 40 mg 05/28/20 09:00 05/31/20 08:52 Pantoprazole 40 Mg Tab PO 40 mg DAILY SANJAY Administration Saccharomyces Boulardii 250 mg 05/28/20 09:00 05/31/20 08:52 Saccharomyces Boulardii 250 Mg Cap PO 250 mg DAILY SANJAY Administration Sodium Chloride 10 ml 05/27/20 09:00 05/31/20 09:37 Flush - Normal Saline 10 Ml Syringe IVF 10 ml Q12HR SANJAY Administration - Exam General Appearance: awake alert Eye: anicteric sclera ENT: moist mucosa Neck: supple Heart: RRR Respiratory: CTAB Gastrointestinal: soft, non-tender Extremities: no cyanosis Skin: no rashes Psychiatric: normal affect, normal behavior Hosp A/P - Plan -Assessment (1) Pneumonia due to COVID-19 virus Code(s): U07.1 - COVID-19; J12.89 - OTHER VIRAL PNEUMONIA Status: Acute (2) Acute respiratory failure with hypoxia Code(s): J96.01 - ACUTE RESPIRATORY FAILURE WITH HYPOXIA Status: Acute (3) DM2 (diabetes mellitus, type 2) Status: Chronic (4) HTN (hypertension) Code(s): I10 - ESSENTIAL (PRIMARY) HYPERTENSION Status: Chronic Qualifiers: Hypertension type: essential hypertension Qualified Code(s): I10 - Essential (primary) hypertension - Plan Patient continues to need supplemental oxygen. Stable currently Continue Remdesivir Continue Lovenox/Dexamethsone continue Albuterol MDI OOB/ambulate
[2020-05-31] MEDS: REMDESIVIR (EUA) 100 MG in Sodium Chloride 0.9% 250 ML 230 ML IV SCH (18:31)
[2020-05-31] MEDS: Insulin Glargine 10 UNITS in Pre-Filled Syringe 1 EACH SC SCH (21:16)
[2020-06-01] MEDS: HYDROcodone/Acetaminophen 5/325 mg Tablet PO PRN ×3 (05:05→18:25)
[2020-06-01] MEDS: Guaifenesin DM 100-10/5 ML UDCUP PO PRN ×3 (05:05→18:25)
[2020-06-01 05:20] LABS: ALT (SGPT) 22 U/L (8-55); AST (SGOT) 20 U/L (5-34); Albumin 2.9 g/dL (3.4-4.8); Alkaline Phosphatase 102 U/L (40-110); Bilirubin, Direct 0.2 mg/dL (0.1-0.3); Bilirubin, Total 0.4 mg/dL (0.2-1.2); Protein, Total 5.5 g/dL (6.0-8.3)
[2020-06-01 05:23] LABS: Anion Gap 11 mmol/L (10-20); BUN (Urea Nitrogen) 10 mg/dL (9.8-20.1); Calc. Creatinine Clearance 75 mL/min (70-130); Calcium 8.1 mg/dL (7.8-10.44); Carbon Dioxide 27 mmol/L (23-31); Chloride 101 mmol/L (98-107); Estimated GFR-MDRD 83; Glucose 154 mg/dL (83-110); Potassium 3.6 mmol/L (3.5-5.1); Sodium 135 mmol/L (136-145)
[2020-06-01] MEDS: Enoxaparin Sodium 40 MG/0.4 ML SYRINGE SC SCH ×2 (08:56→21:37)
[2020-06-01] MEDS: Lisinopril 5 MG TAB PO SCH (08:56)
[2020-06-01] MEDS: Dexamethasone 6 MG in Sodium Chloride 0.9% 50 ML IVPB SCH (08:56)
[2020-06-01] MEDS: Insulin Glargine 20 UNITS in Pre-Filled Syringe 1 EACH SC SCH (08:57)
[2020-06-01] MEDS: FLUoxetine HCl 20 MG CAP PO SCH (08:57)
[2020-06-01] MEDS: Saccharomyces boulardii 250 MG CAP PO SCH (08:57)
[2020-06-01] MEDS ORDERED: Ascorbic Acid 500 mg Chewable Tablet PO SCH (10:45)
[2020-06-01] MEDS ORDERED: Zinc Sulfate 220 MG CAP PO SCH (10:45)
[2020-06-01] MEDS: HumaLOG 300 UNITS/3 ML VIAL SC PRN ×3 (11:51→21:35)
--- NOTE | 2020-06-01 16:54 | PDOC.HOSPP ---
- Subjective Encounter Date: 06/01/20 Encounter Time: 16:49 Subjective: Patient seen for follow-up regarding COVID-19 pneumonia. Feels slightly better. - Objective Vital Signs & Weight: Vital Signs (12 hours) Temp Pulse Resp BP BP Pulse Ox 06/01/20 15:00 98.2 F 66 18 161/69 H 93 L 06/01/20 11:55 98.4 F 64 22 H 173/80 H 93 L 06/01/20 09:00 98.2 F 65 20 164/73 H 95 06/01/20 04:50 98.4 F 59 L 16 142/65 H 93 L Weight Admit Weight 142 lb Weight 144 lb I&O: 05/31/20 06/01/20 06/02/20 06:59 06:59 06:59 Intake Total 1040 1160 Output Total 1750 1300 Balance -710 -140 Result Diagrams: 05/27/20 04:06 06/01/20 04:31 Additional Labs: Accuchecks 06/01/20 05/31/20 05/31/20 10:54 21:12 16:57 POC Glucose 193 H 250 H 140 H I reviewed patient's labs and MAR EKG Reviewed by me: Yes (NSR on telemetry) Hospitalist ROS - Review of Systems Respiratory: reports: cough, dry, SOB with excertion. denies: shortness of breath, hemoptysis, pleuritic pain, sputum, wheezing Genitourinary: denies: dysuria, frequency, incontinence, hematuria, retention - Medication Medications: Active Medications Generic Name Dose Route Start Last Admin Trade Name Freq PRN Reason Stop Dose Admin Acetaminophen 650 mg 05/27/20 01:30 05/28/20 21:02 Acetaminophen 325 Mg Tab PO 650 mg Q4H PRN Administration Headache/Fever/Mild Pain (1-3) Hydrocodone Bitart/Acetaminophen 1 tab 05/27/20 12:46 06/01/20 11:53 Hydrocodone/Acetaminophen 5/325 Mg Tablet PO 1 tab Q6H PRN Administration Pain 4-6 Enoxaparin Sodium 40 mg 05/27/20 21:00 06/01/20 08:56 Enoxaparin Sodium 40 Mg/0.4 Ml Syringe SC 40 mg BID SANJAY Administration Fluoxetine HCl 40 mg 05/28/20 09:00 10/17/20 08:57 Fluoxetine Hcl 20 Mg Cap PO 40 mg DAILY SANJAY Administration Guaifenesin/Dextromethorphan 15 ml 05/27/20 01:30 06/01/20 11:52 Guaifenesin Dm 100-10/5 Ml Udcup PO 15 ml Q4H PRN Administration Cough Dexamethasone 6 mg/ Sodium 50.6 mls @ 100 mls/hr 05/27/20 09:00 06/01/20 08:56 Chloride IVPB 50.6 mls DAILY SANJAY Administration Insulin Glargine 10 units/ 0.1 mls @ 0 mls/hr 05/27/20 21:00 05/31/20 21:16 Miscellaneous Medication SC 0.1 mls HS SANJAY Administration Insulin Glargine 20 units/ 0.2 mls @ 0 mls/hr 05/28/20 09:00 06/01/20 08:57 Miscellaneous Medication SC 0.2 mls QAM SANJAY Administration Insulin Human Lispro 0 units 05/27/20 21:51 05/31/20 21:15 Humalog 300 Units/3 Ml Vial SC 2 unit .BEDTIME SLIDING SC PRN Administration Bedtime Correctional Scale Insulin Human Lispro 0 units 05/28/20 07:57 06/01/20 11:51 Humalog 300 Units/3 Ml Vial SC 2 units .MODERATE SLIDING SC PRN Administration Moderate Correctional Scale Lisinopril 5 mg 05/28/20 09:00 06/01/20 08:56 Lisinopril 5 Mg Tab PO 5 mg DAILY SANJAY Administration Pantoprazole Sodium 40 mg 05/28/20 09:00 06/01/20 08:57 Pantoprazole 40 Mg Tab PO 40 mg DAILY SANJAY Administration Saccharomyces Boulardii 250 mg 05/28/20 09:00 06/01/20 08:57 Saccharomyces Boulardii 250 Mg Cap PO 250 mg DAILY SANJAY Administration Sodium Chloride 10 ml 05/27/20 09:00 06/01/20 08:57 Flush - Normal Saline 10 Ml Syringe IVF 10 ml Q12HR SANJAY Administration - Exam General Appearance: awake alert Eye: anicteric sclera ENT: moist mucosa Neck: supple Heart: RRR Respiratory: CTAB Gastrointestinal: soft, non-tender Skin: no rashes Psychiatric: normal affect, normal behavior Hosp A/P - Plan -Assessment (1) Pneumonia due to COVID-19 virus Code(s): U07.1 - COVID-19; J12.89 - OTHER VIRAL PNEUMONIA Status: Acute (2) Acute respiratory failure with hypoxia Code(s): J96.01 - ACUTE RESPIRATORY FAILURE WITH HYPOXIA Status: Acute (3) DM2 (diabetes mellitus, type 2) Status: Chronic (4) HTN (hypertension) Code(s): I10 - ESSENTIAL (PRIMARY) HYPERTENSION Status: Chronic Qualifiers: Hypertension type: essential hypertension Qualified Code(s): I10 - Essential (primary) hypertension - Plan Patient completed Remdesivir Continue Lovenox/Dexamethsone/vitamin C/zinc. continue Albuterol MDI OOB/ambulate Initial plan was to discharge patient home with home health. However, she desaturated with ambulation. She will need home oxygen set up prior to discharge. Likely home in 24 to 48 hours.
[2020-06-01] MEDS: Insulin Glargine 10 UNITS in Pre-Filled Syringe 1 EACH SC SCH (21:35)
[2020-06-02] MEDS: Guaifenesin DM 100-10/5 ML UDCUP PO PRN (00:38)
[2020-06-02] MEDS: HYDROcodone/Acetaminophen 5/325 mg Tablet PO PRN ×4 (00:39→20:08)
[2020-06-02 05:42] LABS: Anion Gap 13 mmol/L (10-20); BUN (Urea Nitrogen) 15 mg/dL (9.8-20.1); Calc. Creatinine Clearance 67 mL/min (70-130); Calcium 8.2 mg/dL (7.8-10.44); Carbon Dioxide 27 mmol/L (23-31); Chloride 99 mmol/L (98-107); Estimated GFR-MDRD 73; Glucose 301 mg/dL (83-110); Potassium 3.6 mmol/L (3.5-5.1); Sodium 135 mmol/L (136-145)
[2020-06-02 05:45] LABS: ALT (SGPT) 19 U/L (8-55); AST (SGOT) 16 U/L (5-34); Albumin 2.8 g/dL (3.4-4.8); Alkaline Phosphatase 101 U/L (40-110); Bilirubin, Direct 0.2 mg/dL (0.1-0.3); Bilirubin, Total 0.3 mg/dL (0.2-1.2); Protein, Total 5.4 g/dL (6.0-8.3)
[2020-06-02] MEDS: HumaLOG 300 UNITS/3 ML VIAL SC PRN ×4 (06:16→20:37)
[2020-06-02] MEDS: Ascorbic Acid 500 mg Chewable Tablet PO SCH (11:03)
[2020-06-02] MEDS: Saccharomyces boulardii 250 MG CAP PO SCH (11:03)
[2020-06-02] MEDS: Lisinopril 5 MG TAB PO SCH (11:03)
[2020-06-02] MEDS: Zinc Sulfate 220 MG CAP PO SCH (11:03)
[2020-06-02] MEDS: FLUoxetine HCl 20 MG CAP PO SCH (11:03)
[2020-06-02] MEDS: Enoxaparin Sodium 40 MG/0.4 ML SYRINGE SC SCH ×2 (11:03→20:08)
[2020-06-02] MEDS: Insulin Glargine 20 UNITS in Pre-Filled Syringe 1 EACH SC SCH (11:04)
[2020-06-02] MEDS: Dexamethasone 6 MG in Sodium Chloride 0.9% 50 ML IVPB SCH (11:04)
--- NOTE | 2020-06-02 15:17 | PDOC.HOSPP ---
- Subjective Encounter Date: 06/02/20 Encounter Time: 12:00 Subjective: Seen in follow-up for pneumonia secondary to COVID-19 virus. Reports generalized weakness and cough. - Objective Vital Signs & Weight: Vital Signs (12 hours) Temp Pulse Resp BP BP Pulse Ox 06/02/20 11:30 98.6 F 69 20 178/76 H 95 06/02/20 11:03 58 L 06/02/20 11:00 92 L 06/02/20 04:00 99 F 58 L 16 144/67 H 94 L Weight Admit Weight 142 lb Weight 144 lb I&O: 06/01/20 06/02/20 06/03/20 06:59 06:59 06:59 Intake Total 1160 720 Output Total 1300 Balance -140 720 Result Diagrams: 05/27/20 04:06 06/02/20 04:58 Additional Labs: Accuchecks 06/02/20 06/02/20 06/01/20 11:15 06:01 21:26 POC Glucose 227 H 247 H 339 H 06/01/20 17:08 POC Glucose 296 H I reviewed patient's labs and MAR EKG Reviewed by me: Yes (Telemetry: NSR) Hospitalist ROS - Review of Systems Cardiovascular: denies: chest pain, palpitations, orthopnea, paroxysmal noc. dyspnea, edema, light headedness Gastrointestinal: denies: nausea, vomiting, abdominal pain, diarrhea, constipation, melena, hematochezia - Medication Medications: Active Medications Generic Name Dose Route Start Last Admin Trade Name Freq PRN Reason Stop Dose Admin Acetaminophen 650 mg 05/27/20 01:30 05/28/20 21:02 Acetaminophen 325 Mg Tab PO 650 mg Q4H PRN Administration Headache/Fever/Mild Pain (1-3) Hydrocodone Bitart/Acetaminophen 1 tab 05/27/20 12:46 06/02/20 12:52 Hydrocodone/Acetaminophen 5/325 Mg Tablet PO 1 tab Q6H PRN Administration Pain 4-6 Ascorbic Acid 1,000 mg 06/02/20 09:00 06/02/20 11:03 Ascorbic Acid 500 Mg Chewable Tablet PO 1,000 mg DAILY SANJAY Administration Enoxaparin Sodium 40 mg 05/27/20 21:00 06/02/20 11:03 Enoxaparin Sodium 40 Mg/0.4 Ml Syringe SC 40 mg BID SANJAY Administration Fluoxetine HCl 40 mg 10/13/20 09:00 06/02/20 11:03 Fluoxetine Hcl 20 Mg Cap PO 40 mg DAILY SANJAY Administration Guaifenesin/Dextromethorphan 15 ml 05/27/20 01:30 06/02/20 00:38 Guaifenesin Dm 100-10/5 Ml Udcup PO 15 ml Q4H PRN Administration Cough Dexamethasone 6 mg/ Sodium 50.6 mls @ 100 mls/hr 05/27/20 09:00 06/02/20 11:04 Chloride IVPB 50.6 mls DAILY SANJAY Administration Insulin Glargine 10 units/ 0.1 mls @ 0 mls/hr 05/27/20 21:00 06/01/20 21:35 Miscellaneous Medication SC 0.1 mls HS SANJAY Administration Insulin Glargine 20 units/ 0.2 mls @ 0 mls/hr 05/28/20 09:00 06/02/20 11:04 Miscellaneous Medication SC 0.2 mls QAM SANJAY Administration Insulin Human Lispro 0 units 05/27/20 21:51 06/01/20 21:35 Humalog 300 Units/3 Ml Vial SC 4 unit .BEDTIME SLIDING SC PRN Administration Bedtime Correctional Scale Insulin Human Lispro 0 units 05/28/20 07:57 06/02/20 11:19 Humalog 300 Units/3 Ml Vial SC 4 units .MODERATE SLIDING SC PRN Administration Moderate Correctional Scale Lisinopril 5 mg 05/28/20 09:00 06/02/20 11:03 Lisinopril 5 Mg Tab PO 5 mg DAILY SANJAY Administration Pantoprazole Sodium 40 mg 05/28/20 09:00 06/02/20 11:03 Pantoprazole 40 Mg Tab PO 40 mg DAILY SANJAY Administration Saccharomyces Boulardii 250 mg 05/28/20 09:00 06/02/20 11:03 Saccharomyces Boulardii 250 Mg Cap PO 250 mg DAILY SANJAY Administration Sodium Chloride 10 ml 05/27/20 09:00 06/02/20 11:04 Flush - Normal Saline 10 Ml Syringe IVF 10 ml Q12HR SANJAY Administration Zinc Sulfate 220 mg 06/02/20 09:00 06/02/20 11:03 Zinc Sulfate 220 Mg Cap PO 220 mg DAILY SANJAY Administration - Exam General Appearance: awake alert Eye: anicteric sclera ENT: moist mucosa Neck: supple Heart: RRR Respiratory: CTAB Gastrointestinal: soft, non-tender Skin: no rashes Musculoskeletal: no muscle wasting Psychiatric: normal affect Hosp A/P - Plan -Assessment (1) Pneumonia due to COVID-19 virus Code(s): U07.1 - COVID-19; J12.89 - OTHER VIRAL PNEUMONIA Status: Acute (2) Acute respiratory failure with hypoxia Code(s): J96.01 - ACUTE RESPIRATORY FAILURE WITH HYPOXIA Status: Acute (3) DM2 (diabetes mellitus, type 2) Status: Chronic (4) HTN (hypertension) Code(s): I10 - ESSENTIAL (PRIMARY) HYPERTENSION Status: Chronic Qualifiers: Hypertension type: essential hypertension Qualified Code(s): I10 - Essential (primary) hypertension - Plan Patient completed Remdesivir yesterday. Continue Lovenox/Dexamethsone/vitamin C/zinc. continue Albuterol MDI Patient reports generalized weakness. PT eval/treatment pending. Home oxygen form signed. Likely home in 24 to 48 hours.
--- NOTE | 2020-06-02 18:44 | PDOC.EVN ---
Event Note - Event Note Event Note: Patient ambulated 6 feet with physical therapy today. She had unsteady gait, physical therapy recommended [facility]hab [facility]. Patient has limited support at home as all family members at home are COVID positive and recovering themselves. Patient is interested in going to bed use of swing bed in [place] before going home. OT service has been consulted. Patient may need swing bed.
[2020-06-02] MEDS: Insulin Glargine 10 UNITS in Pre-Filled Syringe 1 EACH SC SCH (20:10)
[2020-06-03] MEDS: HYDROcodone/Acetaminophen 5/325 mg Tablet PO PRN ×4 (02:07→23:59)
[2020-06-03 05:30] LABS: ALT (SGPT) 16 U/L (8-55); AST (SGOT) 16 U/L (5-34); Albumin 2.9 g/dL (3.4-4.8); Alkaline Phosphatase 113 U/L (40-110); Anion Gap 12 mmol/L (10-20); BUN (Urea Nitrogen) 15 mg/dL (9.8-20.1); Bilirubin, Direct 0.2 mg/dL (0.1-0.3); Bilirubin, Total 0.3 mg/dL (0.2-1.2); Calc. Creatinine Clearance 68 mL/min (70-130); Calcium 8.3 mg/dL (7.8-10.44); Carbon Dioxide 28 mmol/L (23-31); Chloride 100 mmol/L (98-107); Estimated GFR-MDRD 75; Glucose 327 mg/dL (83-110); Potassium 4.1 mmol/L (3.5-5.1); Protein, Total 5.4 g/dL (6.0-8.3); Sodium 136 mmol/L (136-145)
[2020-06-03] MEDS: HumaLOG 300 UNITS/3 ML VIAL SC PRN ×4 (05:52→20:44)
[2020-06-03] MEDS: Ascorbic Acid 500 mg Chewable Tablet PO SCH (08:11)
[2020-06-03] MEDS: Enoxaparin Sodium 40 MG/0.4 ML SYRINGE SC SCH ×2 (08:11→20:44)
[2020-06-03] MEDS: Zinc Sulfate 220 MG CAP PO SCH (08:11)
[2020-06-03] MEDS: FLUoxetine HCl 20 MG CAP PO SCH (08:11)
[2020-06-03] MEDS: Saccharomyces boulardii 250 MG CAP PO SCH (08:11)
[2020-06-03] MEDS: Lisinopril 5 MG TAB PO SCH (08:11)
[2020-06-03] MEDS: Dexamethasone 6 MG in Sodium Chloride 0.9% 50 ML IVPB SCH (08:12)
[2020-06-03] MEDS: Insulin Glargine 20 UNITS in Pre-Filled Syringe 1 EACH SC SCH (08:12)
[2020-06-03 13:50] VITALS: BMI 29.0
--- NOTE | 2020-06-03 16:25 | PDOC.HOSPP ---
- Subjective Encounter Date: 06/03/20 Encounter Time: 15:00 Subjective: Seen for follow-up regarding acute hypoxic respiratory failure. Denies chest pain. Cough present. Shortness of breath with exertion present. - Objective Vital Signs & Weight: Vital Signs (12 hours) Temp Pulse Resp BP BP BP Pulse Ox 06/03/20 13:31 160/74 H 170/81 H 06/03/20 10:50 97 F L 67 20 163/74 H 94 L 06/03/20 08:20 97.1 F L 63 16 170/73 H 94 L 06/03/20 05:35 97.6 F 63 18 172/112 H 96 Pulse Ox Pulse Ox 06/03/20 13:31 95 95 06/03/20 10:50 06/03/20 08:20 06/03/20 05:35 Weight Admit Weight 142 lb Weight 144 lb I&O: 06/02/20 06/03/20 06/04/20 06:59 06:59 06:59 Intake Total 720 720 Output Total 625 Balance 720 95 Result Diagrams: 05/27/20 04:06 06/03/20 04:47 Additional Labs: Accuchecks 06/03/20 06/02/20 06/02/20 10:52 20:18 17:27 POC Glucose 185 H 364 H 394 H I reviewed patient's labs and MAR EKG Reviewed by me: Yes (Telemetry: Sinus rhythm) Hospitalist ROS - Review of Systems Respiratory: reports: cough, dry, SOB with excertion Cardiovascular: denies: chest pain, palpitations, orthopnea, paroxysmal noc. dyspnea, edema, light headedness Gastrointestinal: denies: nausea, vomiting, abdominal pain, diarrhea, constipa tion, melena, hematochezia - Medication Medications: Active Medications Generic Name Dose Route Start Last Admin Trade Name Freq PRN Reason Stop Dose Admin Acetaminophen 650 mg 05/27/20 01:30 05/28/20 21:02 Acetaminophen 325 Mg Tab PO 650 mg Q4H PRN Administration Headache/Fever/Mild Pain (1-3) Hydrocodone Bitart/Acetaminophen 1 tab 05/27/20 12:46 06/03/20 08:22 Hydrocodone/Acetaminophen 5/325 Mg Tablet PO 1 tab Q6H PRN Administration Pain 4-6 Ascorbic Acid 1,000 mg 06/02/20 09:00 06/03/20 08:11 Ascorbic Acid 500 Mg Chewable Tablet PO 1,000 mg DAILY SANJAY Administration Enoxaparin Sodium 40 mg 05/27/20 21:00 06/03/20 08:11 Enoxaparin Sodium 40 Mg/0.4 Ml Syringe SC 40 mg BID SANJAY Administration Fluoxetine HCl 40 mg 05/28/20 09:00 06/03/20 08:11 Fluoxetine Hcl 20 Mg Cap PO 40 mg DAILY SANJAY Administration Guaifenesin/Dextromethorphan 15 ml 05/27/20 01:30 06/02/20 00:38 Guaifenesin Dm 100-10/5 Ml Udcup PO 15 ml Q4H PRN Administration Cough Dexamethasone 6 mg/ Sodium 50.6 mls @ 100 mls/hr 05/27/20 09:00 06/03/20 08:12 Chloride IVPB 50.6 mls DAILY SANJAY Administration Insulin Glargine 10 units/ 0.1 mls @ 0 mls/hr 05/27/20 21:00 06/02/20 20:10 Miscellaneous Medication SC 0.1 mls HS SANJAY Administration Insulin Glargine 20 units/ 0.2 mls @ 0 mls/hr 05/28/20 09:00 06/03/20 08:12 Miscellaneous Medication SC 0.2 mls QAM SANJAY Administration Insulin Human Lispro 0 units 05/27/20 21:51 06/02/20 20:37 Humalog 300 Units/3 Ml Vial SC 5 unit .BEDTIME SLIDING SC PRN Administration Bedtime Correctional Scale Insulin Human Lispro 0 units 05/28/20 07:57 06/03/20 11:08 Humalog 300 Units/3 Ml Vial SC 2 units .MODERATE SLIDING SC PRN Administration Moderate Correctional Scale Lisinopril 5 mg 05/28/20 09:00 06/03/20 08:11 Lisinopril 5 Mg Tab PO 5 mg DAILY SANJAY Administration Pantoprazole Sodium 40 mg 05/28/20 09:00 06/03/20 08:11 Pantoprazole 40 Mg Tab PO 40 mg DAILY SANJAY Administration Saccharomyces Boulardii 250 mg 05/28/20 09:00 06/03/20 08:11 Saccharomyces Boulardii 250 Mg Cap PO 250 mg DAILY SANJAY Administration Sodium Chloride 10 ml 05/27/20 09:00 06/03/20 08:11 Flush - Normal Saline 10 Ml Syringe IVF 10 ml Q12HR SANJAY Administration Zinc Sulfate 220 mg 06/02/20 09:00 06/03/20 08:11 Zinc Sulfate 220 Mg Cap PO 220 mg DAILY SANJAY Administration - Exam General Appearance: NAD Eye: anicteric sclera ENT: normocephalic atraumatic Neck: supple Heart: RRR Respiratory: CTAB Gastrointestinal: soft, non-tender Skin: no rashes Psychiatric: normal affect, normal behavior Hosp A/P - Plan -Assessment (1) Acute respiratory failure with hypoxia Code(s): J96.01 - ACUTE RESPIRATORY FAILURE WITH HYPOXIA Status: Acute (2) Pneumonia due to COVID-19 virus Code(s): U07.1 - COVID-19; J12.89 - OTHER VIRAL PNEUMONIA Status: Acute (3) DM2 (diabetes mellitus, type 2) Status: Chronic (4) HTN (hypertension) Code(s): I10 - ESSENTIAL (PRIMARY) HYPERTENSION Status: Chronic Qualifiers: Hypertension type: essential hypertension Qualified Code(s): I10 - Essential (primary) hypertension - Plan Patient completed Remdesivir. Patient is on Lovenox/Dexamethsone/vitamin C/zinc. Patient is on albuterol MDI Patient needs swing bed for further management. Case management involved in the process.
[2020-06-03] MEDS: Insulin Glargine 10 UNITS in Pre-Filled Syringe 1 EACH SC SCH (20:44)
[2020-06-04 05:53] LABS: ALT (SGPT) 18 U/L (8-55); AST (SGOT) 16 U/L (5-34); Albumin 2.7 g/dL (3.4-4.8); Alkaline Phosphatase 133 U/L (40-110); Bilirubin, Direct 0.2 mg/dL (0.1-0.3); Bilirubin, Total 0.3 mg/dL (0.2-1.2); Protein, Total 5.5 g/dL (6.0-8.3)
[2020-06-04 05:57] LABS: Anion Gap 12 mmol/L (10-20); BUN (Urea Nitrogen) 19 mg/dL (9.8-20.1); Calc. Creatinine Clearance 64 mL/min (70-130); Calcium 8.6 mg/dL (7.8-10.44); Carbon Dioxide 29 mmol/L (23-31); Chloride 97 mmol/L (98-107); Estimated GFR-MDRD 69; Glucose 330 mg/dL (83-110); Potassium 4.5 mmol/L (3.5-5.1); Sodium 133 mmol/L (136-145)
[2020-06-04] MEDS: HumaLOG 300 UNITS/3 ML VIAL SC PRN ×3 (06:22→16:42)
[2020-06-04] MEDS: Insulin Glargine 20 UNITS in Pre-Filled Syringe 1 EACH SC SCH (08:56)
[2020-06-04] MEDS: Dexamethasone 6 MG in Sodium Chloride 0.9% 50 ML IVPB SCH (08:57)
[2020-06-04] MEDS: Lisinopril 5 MG TAB PO SCH (08:57)
[2020-06-04] MEDS: Saccharomyces boulardii 250 MG CAP PO SCH (08:57)
[2020-06-04] MEDS: Zinc Sulfate 220 MG CAP PO SCH (08:57)
[2020-06-04] MEDS: FLUoxetine HCl 20 MG CAP PO SCH (08:57)
[2020-06-04] MEDS: Ascorbic Acid 500 mg Chewable Tablet PO SCH (08:57)
[2020-06-04] MEDS: HYDROcodone/Acetaminophen 5/325 mg Tablet PO PRN ×2 (08:58→15:20)
[2020-06-04] MEDS: Enoxaparin Sodium 40 MG/0.4 ML SYRINGE SC SCH (08:58)
--- NOTE | 2020-06-04 10:10 | PDOC.HOSPP ---
- Subjective Encounter Date: 06/04/20 Encounter Time: 07:00 Subjective: Patient seen for follow-up regarding pneumonia secondary to COVID-19 virus. Reports cough and generalized weakness. - Objective Vital Signs & Weight: Vital Signs (12 hours) Temp Pulse Resp BP Pulse Ox 06/04/20 09:12 94 L 06/04/20 09:10 90 L 06/04/20 09:06 98.7 F 60 20 150/69 H 98 06/04/20 03:30 98.5 F 67 16 174/79 H 95 06/03/20 23:24 98.2 F 85 18 164/76 H 95 Weight Admit Weight 142 lb Weight 144 lb I&O: 06/03/20 06/04/20 06/05/20 06:59 06:59 06:59 Intake Total 720 1520 Output Total 625 635 Balance 95 885 Result Diagrams: 05/27/20 04:06 06/04/20 04:36 Additional Labs: Accuchecks 06/03/20 06/03/20 06/03/20 20:26 17:05 10:52 POC Glucose 387 H 386 H 185 H I reviewed patient's labs and MAR EKG Reviewed by me: Yes (Normal sinus rhythm on telemetry) Hospitalist ROS - Review of Systems Respiratory: reports: cough, dry Cardiovascular: denies: chest pain, palpitations, orthopnea, paroxysmal noc. dyspnea, edema, light headedness - Medication Medications: Active Medications Generic Name Dose Route Start Last Admin Trade Name Freq PRN Reason Stop Dose Admin Acetaminophen 650 mg 05/27/20 01:30 05/28/20 21:02 Acetaminophen 325 Mg Tab PO 650 mg Q4H PRN Administration Headache/Fever/Mild Pain (1-3) Hydrocodone Bitart/Acetaminophen 1 tab 05/27/20 12:46 06/04/20 08:58 Hydrocodone/Acetaminophen 5/325 Mg Tablet PO 1 tab Q6H PRN Administration Pain 4-6 Ascorbic Acid 1,000 mg 06/02/20 09:00 06/04/20 08:57 Ascorbic Acid 500 Mg Chewable Tablet PO 1,000 mg DAILY SANJAY Administration Enoxaparin Sodium 40 mg 05/27/20 21:00 06/04/20 08:58 Enoxaparin Sodium 40 Mg/0.4 Ml Syringe SC 40 mg BID SANJAY Administration Fluoxetine HCl 40 mg 05/28/20 09:00 06/04/20 08:57 Fluoxetine Hcl 20 Mg Cap PO 40 mg DAILY SANJAY Administration Guaifenesin/Dextromethorphan 15 ml 05/27/20 01:30 06/02/20 00:38 Guaifenesin Dm 100-10/5 Ml Udcup PO 15 ml Q4H PRN Administration Cough Dexamethasone 6 mg/ Sodium 50.6 mls @ 100 mls/hr 05/27/20 09:00 06/04/20 08:57 Chloride IVPB 50.6 mls DAILY SANJAY Administration Insulin Glargine 10 units/ 0.1 mls @ 0 mls/hr 05/27/20 21:00 06/03/20 20:44 Miscellaneous Medication SC 0.1 mls HS SANJAY Administration Insulin Glargine 20 units/ 0.2 mls @ 0 mls/hr 05/28/20 09:00 06/04/20 08:56 Miscellaneous Medication SC 0.2 mls QAM SANJAY Administration Insulin Human Lispro 0 units 05/27/20 21:51 06/03/20 20:44 Humalog 300 Units/3 Ml Vial SC 5 unit .BEDTIME SLIDING SC PRN Administration Bedtime Correctional Scale Insulin Human Lispro 0 units 05/28/20 07:57 06/04/20 06:22 Humalog 300 Units/3 Ml Vial SC 8 units .MODERATE SLIDING SC PRN Administration Moderate Correctional Scale Lisinopril 5 mg 05/28/20 09:00 06/04/20 08:57 Lisinopril 5 Mg Tab PO 5 mg DAILY SANJAY Administration Pantoprazole Sodium 40 mg 05/28/20 09:00 06/04/20 08:57 Pantoprazole 40 Mg Tab PO 40 mg DAILY SANJAY Administration Saccharomyces Boulardii 250 mg 05/28/20 09:00 06/04/20 08:57 Saccharomyces Boulardii 250 Mg Cap PO 250 mg DAILY SANJAY Administration Sodium Chloride 10 ml 05/27/20 09:00 06/04/20 08:59 Flush - Normal Saline 10 Ml Syringe IVF 10 ml Q12HR SANJAY Administration Zinc Sulfate 220 mg 06/02/20 09:00 06/04/20 08:57 Zinc Sulfate 220 Mg Cap PO 220 mg DAILY SANJAY Administration - Exam General Appearance: awake alert Eye: anicteric sclera ENT: normocephalic atraumatic Heart: RRR Respiratory: CTAB Gastrointestinal: soft, non-tender Psychiatric: normal affect, normal behavior Hosp A/P - Plan -Assessment (1) Acute respiratory failure with hypoxia Code(s): J96.01 - ACUTE RESPIRATORY FAILURE WITH HYPOXIA Status: Acute (2) Pneumonia due to COVID-19 virus Code(s): U07.1 - COVID-19; J12.89 - OTHER VIRAL PNEUMONIA Status: Acute (3) DM2 (diabetes mellitus, type 2) Status: Chronic (4) HTN (hypertension) Code(s): I10 - ESSENTIAL (PRIMARY) HYPERTENSION Status: Chronic Qualifiers: Hypertension type: essential hypertension Qualified Code(s): I10 - Essential (primary) hypertension - Plan Patient completed course of remdesivir. Continue Lovenox/Dexamethsone/vitamin C/zinc/albuterol MDI Patient awaiting swing bed approval.
[2020-06-04 16:01] VITALS: BP 153/73; TEMP 97.4
--- NOTE | 2020-06-05 02:43 | DIS ---
DATE OF ADMISSION: 05/27/2020 DATE OF DISCHARGE: 06/04/2020 PRIMARY CARE PROVIDER: Dr. Jeff Ceja. DISCHARGE DIAGNOSES: 1. COVID-19 pneumonia. 2. Acute hypoxic respiratory failure. 3. Hyponatremia. 4. Elevated alkaline phosphatase. 5. Physical deconditioning. CONDITION OF PATIENT ON THE DAY OF DISCHARGE: Stable. I assessed Ms. Sanches on the day of discharge. Please refer to my daily hospitalist progress note for further details regarding this [id number] encounter. HOSPITAL COURSE: Ms. Sanches is a pleasant 74-year-old lady who was admitted to [facility] on May 27, 2020, for acute hypoxic respiratory failure secondary to COVID-19 pneumonia. She was seen by Infectious Diseases Service, Dr. Cabrera. She was treated with dexamethasone, remdesivir, vitamin C, and zinc. She improved clinically. She was requiring supplemental oxygen. She was also physically deconditioned. She was seen by Physical therapy Service and has been advised rehab versus snf facility. She has been accepted to swing bed at [place]. She is being discharged there in a stable condition. DISCHARGE MEDICATIONS: 1. Xanax p.r.n. 2. Florastor 250 mg daily. 3. Prilosec 20 mg daily. 4. Prozac 40 mg daily. 5. Lisinopril 5 mg daily. 6. Proventil 2 puffs every 4 hours as needed. 7. Zofran 4 mg every 6 hours as needed. 8. Tylenol No:3 p.r.n. 9. Dexamethasone 6 mg on the morning of June 05, 2020. 10. Tresiba 20 units daily. 11. Vitamin C 1000 units on the morning of June 05, 2020. 12. Zinc sulfate 220 mg on the morning of June 05, 2020. POST-ACUTE CARE FOLLOWUP: With primary care provider in 1 week. She was also advised to have her CBC, chem-7 and LFTs checked in five days. On the day of discharge, she has sodium 133, potassium 4.5, creatinine 0.81, total bilirubin 0.3, direct bilirubin 0.2, and alkaline phosphatase 133. Albumin is 2.7. Many thanks for allowing me to participate in your patient's care. Please feel free to contact me with any questions or concerns. DIET: Heart healthy and diabetic. ACTIVITY: As tolerated. DISCHARGE DESTINATION: [facility]. TIME SPENT: Total amount of time spent coordinating this discharge: 32 minutes. Job ID: [id number]
[2020-06-05] MEDS ORDERED: Dexamethasone 4 MG TAB PO SCH (08:00)
--- NOTE | 2020-06-06 22:51 | PQF ---
CLINICAL DOCUMENTATION CLARIFICATION FORM: Dear : James Carcamo Date / Time: 06/06/2020 Please exercise your independent, professional judgment in responding to the clarification form. Clinical indicators are provided on the bottom of this form for your review Please check appropriate box(es) to clarify if the following diagnosis has been ruled in our ruled out: [ ] Ruled in sepsis [ ] Continue to treat [ ] Resolved [ x ] Ruled out sepsis [ ] Improving [ ] Cannot rule out diagnosis [ ] Other diagnosis (Please specify if any) [ ] Unable to determine Physician Signature: Date/Time: For continuity of documentation, please document condition throughout progress notes and discharge summary. Thank You. To be completed by CDI/Coding staff for physician review: Present Clinical Indicators - Signs / Symptoms / Labs Results and Location in Medical Record [x] Fever, Sepsis ED provider report on 05/27 [x] Patient received levaquin and vancomycin prior to transfer ED provider report on 05/27 [x] Sepsis alert was activated due to patient meeting the activation requirements in step A and Step B ED provider report on 05/27 [x] Pneumonia due to COVID 19 virus H&P on 05/27 Present Risk Factors Results and Location in Medical Record [x] Aged person 75 yrs ED provider report on 05/27 [x] Covid pneumonia H&P on 05/27 Present Treatments Results and Location in Medical Record [x] Patient received levaquin and vancomycin prior to transfer ED provider report on 05/27 [x] Remdesivir 100 mg Medication from 05/28 to 05/31 [ ] [ ] CDS/Light Oil Operator Signature: AAS Phone #: Date/Time: 06/06/2020 This is a permanent part of the Medical Record [facility]
== END 2020-06-04 17:30 | disposition swing bed (61) | DRG 177 ==
LOC: ERS 23:52 → 2SW 05-27 01:24
PROVIDERS: ADMIT Internal Medicine; ATTEND Internal Medicine
PROC: XW033E5 Introduction of Remdesivir Anti-infective into Peripheral Vein, Percutaneous Approach, New Technology Group 5 (ICD-10-PCS; principal; 2020-05-27)
PROC: XW033E5 Introduction of Remdesivir Anti-infective into Peripheral Vein, Percutaneous Approach, New Technology Group 5 (ICD-10-PCS; 2020-05-28)
PROC: XW033E5 Introduction of Remdesivir Anti-infective into Peripheral Vein, Percutaneous Approach, New Technology Group 5 (ICD-10-PCS; 2020-05-29)
PROC: XW033E5 Introduction of Remdesivir Anti-infective into Peripheral Vein, Percutaneous Approach, New Technology Group 5 (ICD-10-PCS; 2020-05-30)
PROC: XW033E5 Introduction of Remdesivir Anti-infective into Peripheral Vein, Percutaneous Approach, New Technology Group 5 (ICD-10-PCS; 2020-05-31)
DX: U07.1 COVID-19 (principal); J12.89 Other viral pneumonia; J96.01 Acute respiratory failure with hypoxia; E87.1 Hypo-osmolality and hyponatremia; E11.9 Type 2 diabetes mellitus without complications; I10 Essential (primary) hypertension; E78.00 Pure hypercholesterolemia, unspecified; K21.9 Gastro-esophageal reflux disease without esophagitis; F41.9 Anxiety disorder, unspecified; F32.9 Major depressive disorder, single episode, unspecified; Z88.8 Allergy status to other drugs, medicaments and biological substances; Z79.899 Other long term (current) drug therapy; R53.81 Other malaise; R74.8 Abnormal levels of other serum enzymes
CPT/HCPCS: 36415; 36416; 71275; 80048; 80053; 80076; 82728; 83605; 83615; 84145; 84484; 85007; 85027; 85379; 86140; 86141; J1100; J1650; J1815; J7050; Q0162; Q9967

== ENCOUNTER 2020-11-22 13:30 | Outpatient (CLI) | payer MEDICARE | END 2020-11-22 13:31 | disposition home or self-care (01) | LOC: BICMAMMO 13:30 | PROVIDERS: ATTEND Family Medicine | DX: Z12.31 Encounter for screening mammogram for malignant neoplasm of breast (principal) | CPT/HCPCS: 77063; 77067 ==

== ENCOUNTER 2021-07-16 13:51 | Outpatient (CLI) | payer MEDICARE | END 2021-07-16 13:52 | disposition home or self-care (01) | LOC: RAD 13:51 | PROVIDERS: ATTEND Internal Medicine Critical Care Medicine | DX: R06.00 Dyspnea, unspecified (principal); K44.9 Diaphragmatic hernia without obstruction or gangrene | CPT/HCPCS: 71046 ==

== ENCOUNTER 2022-01-25 00:36 | Inpatient (IN) | payer MEDICARE ==
[2022-01-25] MEDS ORDERED: Ondansetron PF 4 MG/2 ML Vial ONE (00:53)
[2022-01-25] MEDS ORDERED: Morphine 4 MG/ML VIAL ONE (00:53)
[2022-01-25 01:47] LABS: #Eosinphils 0.3 thou/uL (0.0-0.7); #Lymphocytes 1.9 thou/uL (1.20-3.40); #Monocytes 0.6 thou/uL (0.11-0.59); #Neutrophils 11.9 thou/uL (1.40-6.50); %Basophils 0.3 % (0.0-1.0); %Eosinophils 2.2 % (0.0-10.0); %Lymphocytes 12.7 % (21.0-51.0); %Monocytes 4.2 % (0.0-10.0); %Neutrophils 80.7 % (42.0-75.0); Hemoglobin 14.4 g/dL (12.0-16.0); Mean Corpuscular HGB CONC 33.1 g/dL (32.0-36.0); Mean Corpuscular Hemoglobin 32.1 pg (27.0-31.0); Mean Corpuscular Volume 97.1 fL (78.0-98.0); Platelet Count 360 thou/uL (130-400); RBC Distribution Width 11.2 % (11.5-14.5); Red Blood Cell (RBC) Count 4.48 mill/uL (4.20-5.40); White Blood Cell (WBC) Count 14.8 thou/uL (4.8-10.8)
[2022-01-25 02:04] LABS: ALT (SGPT) 12 U/L (8-55); AST (SGOT) 12 U/L (5-34); Albumin 3.9 g/dL (3.4-4.8); Alkaline Phosphatase 118 U/L (40-110); Anion Gap 15 mmol/L (10-20); BUN (Urea Nitrogen) 12 mg/dL (9.8-20.1); Bilirubin, Total 0.5 mg/dL (0.2-1.2); Calc. Creatinine Clearance 0 mL/min (70-130); Carbon Dioxide 23 mmol/L (23-31); Chloride 102 mmol/L (98-107); Globulin 3.1 g/dL (2.4-3.5); Glucose 360 mg/dL (83-110); Potassium 4.5 mmol/L (3.5-5.1); Sodium 135 mmol/L (136-145)
[2022-01-25] MEDS ORDERED: Dextrose 50% Abboject 50 ML SYRINGE SLOW IVP PRN (02:15)
[2022-01-25] MEDS ORDERED: Dextrose 5% in Water 1,000 ML IV PRN (02:15)
[2022-01-25] MEDS ORDERED: Promethazine HCl 25 MG/ML VIAL IM PRN (02:16)
[2022-01-25] MEDS ORDERED: Ondansetron PF 4 MG/2 ML Vial IVP PRN (02:16)
[2022-01-25] MEDS ORDERED: hydrALAZINE 20 MG/ML VIAL SLOW IVP PRN (02:16)
[2022-01-25] MEDS ORDERED: Lorazepam 2 MG/ML VIAL SLOW IVP PRN (02:16)
[2022-01-25] MEDS ORDERED: Albuterol 200 PUFF (6.7GM INHALER) INH PRN (02:19)
[2022-01-25] MEDS ORDERED: ALPRAZolam 0.25 MG TAB PO PRN (02:19)
[2022-01-25] MEDS ORDERED: Lantus 1000 UNITS/10 ML VIAL SC STA (02:27)
[2022-01-25] MEDS ORDERED: Acetaminophen 325 MG TAB PO SCH (02:30)
[2022-01-25] MEDS ORDERED: Insulin Glargine 30 UNITS/0.3 ML VIAL SC STA (02:33)
[2022-01-25 02:47] LABS: Magnesium 1.9 mg/dL (1.6-2.6); Phosphorus 2.9 mg/dL (2.3-4.7)
[2022-01-25 04:19] LABS: Hemoglobin A1c 8.3 % (4.0-6.0)
[2022-01-25] MEDS: Sodium Chloride 0.9% 1,000 ML IV SCH ×2 (04:56→14:39)
[2022-01-25] MEDS: Ketorolac Tromethamine 30 MG/ML VIAL IVP SCH ×4 (05:01→23:31)
[2022-01-25] MEDS: Cyclobenzaprine 10 MG TAB PO PRN (05:02)
[2022-01-25] MEDS: Morphine 2 MG/ML VIAL SLOW IVP PRN (05:02)
[2022-01-25 05:34] VITALS: BMI 28.5
[2022-01-25 06:55] LABS: #Basophils 0.1 thou/uL (0.0-0.2); #Eosinphils 0.1 thou/uL (0.0-0.7); #Lymphocytes 2.2 thou/uL (1.20-3.40); #Monocytes 0.7 thou/uL (0.11-0.59); %Basophils 0.5 % (0.0-1.0); %Lymphocytes 19.6 % (21.0-51.0); %Monocytes 6.5 % (0.0-10.0); %Neutrophils 72.4 % (42.0-75.0); Hemoglobin 13.1 g/dL (12.0-16.0); Mean Corpuscular HGB CONC 33.2 g/dL (32.0-36.0); Mean Corpuscular Volume 96.5 fL (78.0-98.0); Mean Platelet Volume 6.2 fL (7.4-10.4); Platelet Count 334 thou/uL (130-400); Red Blood Cell (RBC) Count 4.09 mill/uL (4.20-5.40)
[2022-01-25 07:08] LABS: Prothrombin Time 13.2 sec (12.0-14.7)
[2022-01-25 07:19] LABS: Anion Gap 14 mmol/L (10-20); BUN (Urea Nitrogen) 11 mg/dL (9.8-20.1); Calc. Creatinine Clearance 63 mL/min (70-130); Calcium 8.3 mg/dL (7.8-10.44); Carbon Dioxide 25 mmol/L (23-31); Chloride 101 mmol/L (98-107); Glucose 316 mg/dL (83-110); Potassium 4.5 mmol/L (3.5-5.1); Sodium 135 mmol/L (136-145)
[2022-01-25 07:32] LABS: PTT 27.9 sec (22.9-36.1)
[2022-01-25] MEDS: Polyethylene Glycol 3350 17 GM Packet PO SCH (07:55)
[2022-01-25] MEDS: Senokot S 8.6-50 MG TAB PO SCH ×2 (07:56→21:32)
[2022-01-25] MEDS: HYDROcodone/Acetaminophen 5/325 mg Tablet PO SCH ×3 (07:57→21:23)
[2022-01-25] MEDS: Insulin Glargine 30 UNITS/0.3 ML VIAL SC SCH (07:59)
[2022-01-25] MEDS ORDERED: predniSONE 20 MG TAB PO SCH (08:00)
[2022-01-25] MEDS ORDERED: Gabapentin 300 MG CAP PO SCH (09:00)
[2022-01-25] MEDS ORDERED: Lisinopril 5 MG TAB PO SCH (09:00)
[2022-01-25] MEDS ORDERED: Famotidine/PF 20 mg/2ml Vial SLOW IVP SCH (09:00)
[2022-01-25] MEDS ORDERED: FLUoxetine HCl 20 MG CAP PO SCH (09:00)
[2022-01-25] MEDS: Famotidine 40 MG/4 ML VIAL SLOW IVP SCH ×2 (09:59→21:24)
[2022-01-25] MEDS: HumaLOG 300 UNITS/3 ML VIAL SC PRN (17:28)
[2022-01-25] MEDS: Losartan 25 MG TAB PO SCH (21:23)
[2022-01-25] MEDS: Mirtazapine 15 MG TAB PO SCH (21:23)
[2022-01-25] MEDS: DULoxetine 30 MG CAP PO SCH (21:23)
[2022-01-25] MEDS: lamoTRIgine 100 MG TAB PO SCH (21:24)
[2022-01-25] MEDS: Mometasone 200 MCG/Formoterol 5 MCG 120 PUFF INHALER INH SCH (22:42)
[2022-01-26] MEDS: HumaLOG 300 UNITS/3 ML VIAL SC PRN ×2 (01:04→23:54)
[2022-01-26] MEDS: Ketorolac Tromethamine 30 MG/ML VIAL IVP SCH (06:09)
[2022-01-26] MEDS: Morphine 2 MG/ML VIAL SLOW IVP PRN (06:32)
[2022-01-26] MEDS: Mometasone 200 MCG/Formoterol 5 MCG 120 PUFF INHALER INH SCH ×2 (07:02→20:18)
[2022-01-26] MEDS: Sodium Chloride 0.9% 1,000 ML IV SCH ×2 (07:24→08:45)
[2022-01-26] MEDS: HYDROcodone/Acetaminophen 5/325 mg Tablet PO SCH ×3 (08:42→20:36)
[2022-01-26] MEDS: Ascorbic Acid 500 mg Chewable Tablet PO SCH (08:45)
[2022-01-26] MEDS: Insulin Glargine 30 UNITS/0.3 ML VIAL SC SCH (08:47)
[2022-01-26] MEDS: Polyethylene Glycol 3350 17 GM Packet PO SCH (08:47)
[2022-01-26] MEDS: Senokot S 8.6-50 MG TAB PO SCH ×2 (08:47→20:35)
[2022-01-26] MEDS ORDERED: ALPHA LIPOIC ACID 200 MG PO SCH (09:00)
[2022-01-26] MEDS: Famotidine 40 MG/4 ML VIAL SLOW IVP SCH ×2 (09:53→20:37)
[2022-01-26] MEDS ORDERED: Fentanyl 100 MCG/2 ML VIAL ONE ×3 (13:54→18:50)
[2022-01-26] MEDS ORDERED: fentaNYL Citrate/PF 100 MCG/2 ML SYRINGE ONE (16:35)
[2022-01-26] MEDS ORDERED: CEFAZOLIN 2 GM VIAL ONE (16:40)
[2022-01-26] MEDS ORDERED: Sodium Chloride 0.9% 100 ML ONE (16:40)
[2022-01-26] MEDS ORDERED: Lidocaine 1% PF 5 ML VIAL ONE (16:52)
[2022-01-26] MEDS ORDERED: Ondansetron PF 4 MG/2 ML Vial ONE (16:52)
[2022-01-26] MEDS ORDERED: PROPOFOL 200 MG/20 ML VIAL ONE (16:52)
[2022-01-26] MEDS ORDERED: Bupivacaine HCl 0.5%/Epinephrine 1:200,000/PF 30 ml Vial ONE (16:52)
[2022-01-26] MEDS ORDERED: Dexamethasone 20 MG/5 ML VIAL ONE (16:52)
[2022-01-26] MEDS ORDERED: Ibuprofen 200 MG TAB PO PRN (17:10)
[2022-01-26] MEDS ORDERED: HYDROcodone/Acetaminophen 10/325 mg Tablet PO PRN ×2 (18:02)
[2022-01-26] MEDS ORDERED: Promethazine HCl 25 MG/ML VIAL IM PRN (18:10)
[2022-01-26] MEDS ORDERED: Promethazine HCl 25 MG/ML VIAL IVPB PRN (18:10)
[2022-01-26] MEDS ORDERED: Ondansetron HCl/PF 4 MG/2 ML Vial IVP PRN (18:10)
[2022-01-26] MEDS ORDERED: RENALLY ADJUST ALL ANTIBIOTICS FS SCH (18:15)
[2022-01-26] MEDS ORDERED: Promethazine HCl 25 MG/ML VIAL ONE (18:54)
[2022-01-26] MEDS ORDERED: hydrALAZINE 20 MG/ML VIAL ONE (19:17)
[2022-01-26] MEDS ORDERED: TETANUS AND DIPHTHERIA TOX/PF 0.5 ML DISP.SYRIN IM SCH (20:00)
[2022-01-26] MEDS: Morphine 4 MG/ML VIAL SLOW IVP PRN (20:32)
[2022-01-26] MEDS: Aspirin 81 mg Enteric Coated Tablet PO SCH (20:34)
[2022-01-26] MEDS: lamoTRIgine 100 MG TAB PO SCH (20:35)
[2022-01-26] MEDS: Losartan 25 MG TAB PO SCH (20:35)
[2022-01-26] MEDS: Mirtazapine 15 MG TAB PO SCH (20:35)
[2022-01-26] MEDS: DULoxetine 30 MG CAP PO SCH (20:35)
[2022-01-26] MEDS: Cyclobenzaprine 10 MG TAB PO PRN (23:59)
[2022-01-27] MEDS: Morphine 4 MG/ML VIAL SLOW IVP PRN
[2022-01-27] MEDS ORDERED: Insulin Glargine 30 UNITS/0.3 ML VIAL SC SCH ×2 (00:15→21:00)
[2022-01-27 00:52] LABS: Bacteria/HPF None Seen HPF (None Seen); Bilirubin Negative (Negative); Blood, Urine Negative (Negative); Clarity Clear (Clear); Glucose, Urine (Dipstick) 100 mg/dL (Negative); Ketone, Urine 20 mg/dL (Negative); Leukocyte Negative Leu/uL (Negative); Nitrite Negative (Negative); Protein, Urine (Dipstick) Negative (Neg-Trace); RBC/HPF 0-3 HPF (0-3); Specific Gravity, Urine 1.009 (1.002-1.036); Squamous Epithelial None Seen HPF (0-3); Urobilinogen Normal mg/dL (Less than 2); WBC/HPF 0-3 HPF (0-3); pH, Urine 6.5 (5.0-9.0)
[2022-01-27 00:53] LABS: Urine Culture Reflex No No
[2022-01-27] MEDS: HumaLOG 300 UNITS/3 ML VIAL SC PRN (06:09)
[2022-01-27 06:19] LABS: #Monocytes 0.3 thou/uL (0.11-0.59); #Neutrophils 6.7 thou/uL (1.40-6.50); %Basophils 0.3 % (0.0-1.0); %Eosinophils 0.1 % (0.0-10.0); %Lymphocytes 12.5 % (21.0-51.0); %Monocytes 3.7 % (0.0-10.0); %Neutrophils 83.5 % (42.0-75.0); Hemoglobin 12.2 g/dL (12.0-16.0); Mean Corpuscular HGB CONC 32.4 g/dL (32.0-36.0); Mean Corpuscular Hemoglobin 31.8 pg (27.0-31.0); Mean Corpuscular Volume 98.1 fL (78.0-98.0); Mean Platelet Volume 6.3 fL (7.4-10.4); Platelet Count 322 thou/uL (130-400); RBC Distribution Width 11.4 % (11.5-14.5); Red Blood Cell (RBC) Count 3.84 mill/uL (4.20-5.40)
[2022-01-27 06:44] LABS: Anion Gap 13 mmol/L (10-20); BUN (Urea Nitrogen) 14 mg/dL (9.8-20.1); Calc. Creatinine Clearance 49 mL/min (70-130); Calcium 9.2 mg/dL (7.8-10.44); Carbon Dioxide 25 mmol/L (23-31); Chloride 103 mmol/L (98-107); Glucose 460 mg/dL (83-110); Magnesium 1.9 mg/dL (1.6-2.6); Phosphorus 2.9 mg/dL (2.3-4.7); Potassium 4.7 mmol/L (3.5-5.1); Sodium 136 mmol/L (136-145)
[2022-01-27] MEDS: Mometasone 200 MCG/Formoterol 5 MCG 120 PUFF INHALER INH SCH ×2 (07:12→19:18)
[2022-01-27] MEDS ORDERED: PHOS-NAK 1 PKT PACK PO SCH (08:15)
[2022-01-27] MEDS: HYDROcodone/Acetaminophen 5/325 mg Tablet PO SCH ×3 (10:03→20:50)
[2022-01-27] MEDS: Ascorbic Acid 500 mg Chewable Tablet PO SCH (10:04)
[2022-01-27] MEDS: Aspirin 81 mg Enteric Coated Tablet PO SCH ×2 (10:05→20:48)
[2022-01-27] MEDS: Polyethylene Glycol 3350 17 GM Packet PO SCH (10:05)
[2022-01-27] MEDS: Senokot S 8.6-50 MG TAB PO SCH ×2 (10:29→20:45)
[2022-01-27] MEDS: Famotidine 40 MG/4 ML VIAL SLOW IVP SCH (13:42)
[2022-01-27] MEDS: Insulin Regular 300 UNITS/3 ML VIAL SC PRN ×2 (13:52→23:42)
[2022-01-27] MEDS ORDERED: Guaifenesin DM 100-10/5 ML UDCUP PO PRN (13:57)
[2022-01-27] MEDS: Benzonatate 100 MG CAP PO SCH ×2 (15:45→20:49)
[2022-01-27] MEDS: DULoxetine 30 MG CAP PO SCH (20:49)
[2022-01-27] MEDS: Famotidine 20 MG TAB PO SCH (20:50)
[2022-01-27] MEDS: Insulin Glargine 30 UNITS/0.3 ML VIAL SC SCH (20:51)
[2022-01-27] MEDS: lamoTRIgine 100 MG TAB PO SCH (20:51)
[2022-01-27] MEDS: Losartan 25 MG TAB PO SCH (20:52)
[2022-01-27] MEDS: Mirtazapine 15 MG TAB PO SCH (20:53)
[2022-01-27] MEDS ORDERED: Enoxaparin Sodium 30 MG/0.3 ML SYRINGE SC SCH (21:00)
[2022-01-28 06:07] LABS: #Basophils 0.1 thou/uL (0.0-0.2); #Eosinphils 0.4 thou/uL (0.0-0.7); #Lymphocytes 3.2 thou/uL (1.20-3.40); #Neutrophils 6.8 thou/uL (1.40-6.50); %Basophils 0.6 % (0.0-1.0); %Eosinophils 3.6 % (0.0-10.0); %Lymphocytes 28.2 % (21.0-51.0); %Monocytes 8.7 % (0.0-10.0); Hemoglobin 11.4 g/dL (12.0-16.0); Mean Corpuscular HGB CONC 32.7 g/dL (32.0-36.0); Mean Corpuscular Hemoglobin 32.2 pg (27.0-31.0); Mean Corpuscular Volume 98.5 fL (78.0-98.0); Mean Platelet Volume 5.8 fL (7.4-10.4); Platelet Count 341 thou/uL (130-400); RBC Distribution Width 11.6 % (11.5-14.5); Red Blood Cell (RBC) Count 3.54 mill/uL (4.20-5.40); White Blood Cell (WBC) Count 11.5 thou/uL (4.8-10.8)
[2022-01-28] MEDS: Mometasone 200 MCG/Formoterol 5 MCG 120 PUFF INHALER INH SCH ×2 (06:30→18:53)
[2022-01-28 06:37] LABS: Anion Gap 11 mmol/L (10-20); BUN (Urea Nitrogen) 14 mg/dL (9.8-20.1); Calc. Creatinine Clearance 66 mL/min (70-130); Carbon Dioxide 29 mmol/L (23-31); Chloride 107 mmol/L (98-107); Glucose 120 mg/dL (83-110); Phosphorus 3.2 mg/dL (2.3-4.7); Potassium 3.9 mmol/L (3.5-5.1); Sodium 143 mmol/L (136-145)
[2022-01-28] MEDS ORDERED: PHOS-NAK 1 PKT PACK PO SCH (07:45)
[2022-01-28] MEDS ORDERED: Insulin Glargine 30 UNITS/0.3 ML VIAL SC SCH (09:00)
[2022-01-28] MEDS: Aspirin 81 mg Enteric Coated Tablet PO SCH ×2 (09:05→22:00)
[2022-01-28] MEDS: Senokot S 8.6-50 MG TAB PO SCH ×2 (09:05→22:15)
[2022-01-28] MEDS: Ascorbic Acid 500 mg Chewable Tablet PO SCH (09:05)
[2022-01-28] MEDS: Benzonatate 100 MG CAP PO SCH ×3 (09:05→22:01)
[2022-01-28] MEDS: Polyethylene Glycol 3350 17 GM Packet PO SCH (09:05)
[2022-01-28] MEDS: HYDROcodone/Acetaminophen 5/325 mg Tablet PO SCH ×3 (09:06→22:00)
[2022-01-28] MEDS: Famotidine 20 MG TAB PO SCH ×2 (09:06→22:02)
[2022-01-28] MEDS ORDERED: ALPRAZolam 0.25 MG TAB PO PRN (12:00)
[2022-01-28] MEDS: Insulin Regular 300 UNITS/3 ML VIAL SC PRN ×3 (14:10→22:11)
[2022-01-28] MEDS: DULoxetine 30 MG CAP PO SCH (21:59)
[2022-01-28] MEDS: Losartan 25 MG TAB PO SCH (22:00)
[2022-01-28] MEDS: lamoTRIgine 100 MG TAB PO SCH (22:00)
[2022-01-28] MEDS: Mirtazapine 15 MG TAB PO SCH (22:01)
[2022-01-28] MEDS: Insulin Glargine 30 UNITS/0.3 ML VIAL SC SCH (22:02)
[2022-01-28] MEDS: Cyclobenzaprine 10 MG TAB PO PRN (22:11)
[2022-01-29 05:51] LABS: #Basophils 0.1 thou/uL (0.0-0.2); #Eosinphils 0.7 thou/uL (0.0-0.7); #Lymphocytes 2.7 thou/uL (1.20-3.40); #Monocytes 0.9 thou/uL (0.11-0.59); #Neutrophils 5.5 thou/uL (1.40-6.50); %Basophils 0.6 % (0.0-1.0); %Eosinophils 7.1 % (0.0-10.0); %Lymphocytes 27.4 % (21.0-51.0); %Monocytes 9.5 % (0.0-10.0); %Neutrophils 55.4 % (42.0-75.0); Hemoglobin 11.4 g/dL (12.0-16.0); Mean Corpuscular HGB CONC 32.6 g/dL (32.0-36.0); Mean Corpuscular Hemoglobin 32.2 pg (27.0-31.0); Mean Corpuscular Volume 98.7 fL (78.0-98.0); Platelet Count 352 thou/uL (130-400); RBC Distribution Width 11.4 % (11.5-14.5); Red Blood Cell (RBC) Count 3.55 mill/uL (4.20-5.40); White Blood Cell (WBC) Count 9.9 thou/uL (4.8-10.8)
[2022-01-29] MEDS: Insulin Regular 300 UNITS/3 ML VIAL SC PRN ×4 (06:17→21:47)
[2022-01-29] MEDS: Mometasone 200 MCG/Formoterol 5 MCG 120 PUFF INHALER INH SCH ×2 (06:25→18:59)
[2022-01-29] MEDS ORDERED: Insulin Glargine 30 UNITS/0.3 ML VIAL SC SCH ×2 (09:00→21:00)
[2022-01-29] MEDS ORDERED: Non-Formulary Item 1 EACH (Esomeprazole Magnesium [Esomeprazole Magnesium] 20 MG Capsule. PO SCH (09:00)
[2022-01-29] MEDS ORDERED: Non-Formulary Item 1 EACH (Insulin Degludec [Tresiba Flextouch U-100] 100 UNIT/ML Insuln. SC SCH (09:00)
[2022-01-29] MEDS: HYDROcodone/Acetaminophen 5/325 mg Tablet PO SCH ×3 (10:24→21:39)
[2022-01-29] MEDS: Ascorbic Acid 500 mg Chewable Tablet PO SCH (10:24)
[2022-01-29] MEDS: Aspirin 81 mg Enteric Coated Tablet PO SCH ×2 (10:24→21:45)
[2022-01-29] MEDS: Benzonatate 100 MG CAP PO SCH ×3 (10:25→21:41)
[2022-01-29] MEDS: Senokot S 8.6-50 MG TAB PO SCH ×2 (10:25→21:41)
[2022-01-29] MEDS: Polyethylene Glycol 3350 17 GM Packet PO SCH (10:26)
[2022-01-29] MEDS: Insulin Glargine 30 UNITS/0.3 ML VIAL SC SCH (10:26)
[2022-01-29] MEDS: Losartan 25 MG TAB PO SCH (21:40)
[2022-01-29] MEDS: Mirtazapine 15 MG TAB PO SCH (21:41)
[2022-01-29] MEDS: lamoTRIgine 100 MG TAB PO SCH (21:41)
[2022-01-29] MEDS: DULoxetine 30 MG CAP PO SCH (22:20)
[2022-01-29] MEDS: Cyclobenzaprine 10 MG TAB PO PRN (22:20)
[2022-01-30] MEDS: Insulin Regular 300 UNITS/3 ML VIAL SC PRN ×2 (05:49→12:36)
[2022-01-30] MEDS: Cyclobenzaprine 10 MG TAB PO PRN (05:50)
[2022-01-30] MEDS: Mometasone 200 MCG/Formoterol 5 MCG 120 PUFF INHALER INH SCH (08:57)
[2022-01-30] MEDS: Ascorbic Acid 500 mg Chewable Tablet PO SCH (08:59)
[2022-01-30] MEDS: Polyethylene Glycol 3350 17 GM Packet PO SCH (08:59)
[2022-01-30] MEDS: Benzonatate 100 MG CAP PO SCH ×2 (08:59→14:50)
[2022-01-30] MEDS: Aspirin 81 mg Enteric Coated Tablet PO SCH (09:00)
[2022-01-30] MEDS: Insulin Glargine 30 UNITS/0.3 ML VIAL SC SCH (09:00)
[2022-01-30] MEDS: HYDROcodone/Acetaminophen 5/325 mg Tablet PO SCH ×2 (09:00→14:50)
[2022-01-30] MEDS: Senokot S 8.6-50 MG TAB PO SCH (09:01)
[2022-01-30] MEDS ORDERED: cloNIDine 0.1 MG TAB PO SCH (12:00)
[2022-01-30 17:40] VITALS: BP 157/84; TEMP 98.2
== END 2022-01-30 18:02 | disposition swing bed (61) | DRG 481 ==
LOC: ERS 00:36 → SJJU 02:19
PROVIDERS: ADMIT Surgery; ATTEND Surgery
PROC: 0QSB04Z Reposition Right Lower Femur with Internal Fixation Device, Open Approach (ICD-10-PCS; principal; 2022-01-26)
DX: S72.431A Displaced fracture of medial condyle of right femur, initial encounter for closed fracture (principal); J98.11 Atelectasis; I10 Essential (primary) hypertension; K44.9 Diaphragmatic hernia without obstruction or gangrene; E78.5 Hyperlipidemia, unspecified; K21.9 Gastro-esophageal reflux disease without esophagitis; M85.80 Other specified disorders of bone density and structure, unspecified site; F41.9 Anxiety disorder, unspecified; F32.A Depression, unspecified; G89.29 Other chronic pain; J44.9 Chronic obstructive pulmonary disease, unspecified; E11.40 Type 2 diabetes mellitus with diabetic neuropathy, unspecified; W10.8XXA Fall (on) (from) other stairs and steps, initial encounter; Z20.822 Contact with and (suspected) exposure to COVID-19; Z86.16 Personal history of COVID-19; Z87.01 Personal history of pneumonia (recurrent); Z98.890 Other specified postprocedural states; Z72.89 Other problems related to lifestyle; Z84.89 Family history of other specified conditions; Z88.8 Allergy status to other drugs, medicaments and biological substances; Z79.899 Other long term (current) drug therapy; Z79.82 Long term (current) use of aspirin
CPT/HCPCS: 36415; 36416; 71045; 76000; 80048; 80053; 81001; 83036; 83735; 84100; 85025; 85610; 85730; 86850; 86900; 86901; 93005; 94640; 96374; 96375; C1713; C1769; G0390; J0360; J0690; J1100; J1650; J1815; J1885; J2270; J2405; J2550; J2704; J3010; J3490; J7050; J7620; U0003; U0005

== ENCOUNTER 2022-07-01 14:42 | Emergency (ER) | payer OTHER, MEDICARE ==
[2022-07-01 16:05] LABS: #Eosinphils 0.3 thou/uL (0.0-0.7); #Lymphocytes 2.8 thou/uL (1.20-3.40); #Monocytes 0.7 thou/uL (0.11-0.59); #Neutrophils 6.8 thou/uL (1.40-6.50); %Basophils 0.4 % (0.0-1.0); %Lymphocytes 26.3 % (21.0-51.0); %Monocytes 6.4 % (0.0-10.0); %Neutrophils 63.9 % (42.0-75.0); Mean Corpuscular HGB CONC 33.3 g/dL (32.0-36.0); Mean Corpuscular Hemoglobin 32.2 pg (27.0-31.0); Mean Corpuscular Volume 96.8 fl (78.0-98.0); Mean Platelet Volume 6.2 fL (7.4-10.4); Platelet Count 371 10x3/uL (130-400); RBC Distribution Width 11.4 % (11.5-14.5); Red Blood Cell (RBC) Count 4.03 mill/uL (4.20-5.40); White Blood Cell (WBC) Count 10.6 10x3/uL (4.8-10.8)
[2022-07-01 16:17] LABS: ALT (SGPT) 8 U/L (8-55); AST (SGOT) 15 U/L (5-34); Albumin 4.2 g/dL (3.4-4.8); Alkaline Phosphatase 127 U/L (40-110); Anion Gap 11 mmol/L (10-20); BUN (Urea Nitrogen) 18 mg/dL (9.8-20.1); Bilirubin, Total 0.4 mg/dL (0.2-1.2); Calc. Creatinine Clearance 0 mL/min (70-130); Calcium 9.5 mg/dL (7.8-10.44); Carbon Dioxide 28 mmol/L (23-31); Chloride 103 mmol/L (98-107); Estimated GFR 63; Globulin 3.1 g/dL (2.4-3.5); Glucose 97 mg/dL (83-110); Potassium 3.8 mmol/L (3.5-5.1); Protein, Total 7.3 g/dL (5.8-8.1); Sodium 138 mmol/L (136-145)
== END 2022-07-01 16:11 | disposition home or self-care (01) ==
LOC: ERS 14:42
DX: M25.561 Pain in right knee (principal); I10 Essential (primary) hypertension; E11.9 Type 2 diabetes mellitus without complications; Z79.899 Other long term (current) drug therapy; W01.0XXA Fall on same level from slipping, tripping and stumbling without subsequent striking against object, initial encounter
CPT/HCPCS: 80053; 85025; 94760